=== PATIENT | male | born 1950 | race Caucasian/White ===

== ENCOUNTER 2018-11-12 09:24 | Outpatient (REF) | payer OTHER, SELFPAY ==
[2018-11-12 13:36] LABS: ALT 46 U/L (12-78); AST 27 U/L (15-37); Albumin 3.4 g/dL (3.4-5.0); Alkaline Phosphatase 91 U/L (46-116); Anion Gap 9.4 mmol/L (3-11); BUN 18 mg/dL (7-18); Bilirubin, Total 0.7 mg/dL (0.2-1.0); CO2 26.6 mmol/L (21.0-32.0); CREATININE 0.74 mg/dL (0.70-1.30); Calcium 8.9 mg/dL (8.5-10.1); Chloride 105 mmol/L (98-107); Cholesterol 151 mg/dL (50-200); Glucose 100 mg/dL (70-100); HDL Cholesterol 47 mg/dL (40-60); LDL CHOLESTEROL 83 mg/dL (<100); Potassium 4.1 mmol/L (3.5-5.1); Sodium 141 mmol/L (136-145); Total Protein 6.8 g/dL (6.4-8.2); Triglyceride 121 mg/dL (30-150)
== END 2018-11-12 09:44 ==
LOC: LBN 09:24
PROVIDERS: PCP Family Medicine; Visit Provider Family Medicine
DX: E78.5 Hyperlipidemia, unspecified (principal)
CPT/HCPCS: 80053; 80061; 83721

== ENCOUNTER 2019-04-07 06:52 | Outpatient (CLI) | payer OTHER, SELFPAY ==
--- NOTE | 2019-04-07 08:03 | DI.US_ITS ---
SYMPTOM/DIAGNOSIS: PEDAL EDEMA LT FOOT, LT CALF CRAMPING, SWELLING, R60.0,M79.89,R25.2 LEFT LOWER EXTREMITY ULTRASOUND: The study was carried out according to the usual protocol. The superficial, femoral, popliteal and proximal trifurcation in the superior portion of the leg are well seen. Good compressibility is noted throughout. Flow is demonstrated and flow augmentation was easily elicited with calf compression. SUMMARY: There is no evidence of DVT.
== END 2019-04-07 07:12 ==
PROVIDERS: PCP Family Medicine; Visit Provider Nurse Practitioner
DX: M79.89 Other specified soft tissue disorders (principal); R25.2 Cramp and spasm; R60.0 Localized edema; R22.42 Localized swelling, mass and lump, left lower limb
CPT/HCPCS: 93971

== ENCOUNTER 2019-09-19 19:27 | Inpatient (IN) | payer OTHER, SELFPAY ==
--- NOTE | 2019-09-19 19:35 | ED.GENADUL_ITS ---
Discharge Plan Disposition Patient Disposition: [facility] INPATIENT Condition: Improving Discharge Details Chief Complaint: FlankPain Clinical Impression: Ureter, calculus Primary Care Provider: Emeterio Mahmood ED Provider: Jeffrey Tao Home Meds and New Rx's Prescriptions: No Action atorvastatin 40 mg tablet 40 mg PO DAILY Qty: 90 RF: 3 multivitamin [Multi-Day] 1 EACH tablet 1 ea PO DAILY RF: 0 omega-3 fatty acids-fish oil 1 EACH capsule 1 ea PO BID RF: 0 ibuprofen 200 MG tablet 400 mg PO Q6H PRN RF: 0 aspirin 325 MG tablet 325 mg PO DAILY Qty: 90 RF: 3 metoprolol tartrate 25 mg tablet 25 mg PO BID Qty: 180 RF: 3 Medical Decision Making This patient is a 69-year-old male who presents to the emergency department with chief complaint of left flank pain, nausea. Based on the history, exam, this is most consistent with a kidney stone. Patient will have blood work, urinalysis, CT scan to evaluate for the size of the stone, and to make sure there is no abdominal aortic aneurysm. He will need evaluation to make sure he is not infected as well. If his pain is controlled, the patient can be discharged home to follow-up with his primary care provider or urologist. Patient will be reassessed. Patient had CT scan which shows a 6 mm and 7 mm distal left ureteral stone. His urine shows 20-50 white blood cells. Therefore, I spoke with the on-call urologist, Dr. Lund. Patient's pain is controlled. He will be admitted to the hospitalist service. He will be given antibiotics. Patient agrees with inpatient treatment plan. I spoke with the admitting hospitalist. HPI My side hurts. This patient is a 69-year-old male with multiple medical problems including coronary artery disease, hyperlipidemia, kidney stones, hematuria, hypertension who presents with left flank pain for the past 3 days. He denies any fevers but does state he had chills. The pain is located in the left flank, radiates into his left groin. No lightheadedness, dizziness, passing out. No fevers, no vomiting but he did have some nausea. No diarrhea. He did take some ibuprofen which seemed to help. Otherwise, nothing has helped or made it worse. Symptoms have been constant, severe. Pain is sharp. He states it feels slightly similar to when he had kidney stones in the past. He has required surgery in the past before for kidney stones. General Date/Time Provider Initiated Documentation: 09/19/19 19:34 . Related Data Home Medications Medication Instructions Recorded Confirmed multivitamin [Multi-Day Vitamins] 1 ea PO DAILY 01/11/13 09/19/19 omega-3 fatty acids-fish oil 1 ea PO BID 01/11/13 09/19/19 ibuprofen 400 mg PO Q6H PRN tab-cap 07/12/14 09/19/19 aspirin 325 mg PO DAILY #90 tab 10/21/14 09/19/19 metoprolol tartrate 25 mg tablet 25 mg PO BID #180 tab 05/07/19 09/19/19 atorvastatin 40 mg tablet 40 mg PO DAILY #90 tab-cap 05/11/19 09/19/19 Previous Rx's Medication Instructions Recorded metoprolol tartrate 25 mg tablet 25 mg PO BID #180 tab 05/07/19 atorvastatin 40 mg tablet 40 mg PO DAILY #90 tab-cap 05/11/19 Allergies Allergy/AdvReac Type Severity Reaction Status Date / Time No Known Drug Allergies Allergy Verified 09/19/19 19:42 Review of Systems Narrative: Gen: no fevers. Card: no chest pain. Resp: No cough, difficulty breathing. Abd: no vomiting, abd pain. The rest of the 10 point review of systems is negative except as described in the HPI and above in the ROS. 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 Diabetes oral and insulin tx Heart disease Social History Smoking/Tobacco Use Status: Former Tobacco Use Quit Date: 11/19/84 Alcohol Intake: never Drug use: Never Substance use type: does not use Household members: spouse Housing: house Number of Children: 2 current occupation: [employer] What type of physical activity do you participate in: other Details: mowing/weedwhacking Working smoke detector in home: Yes Fire extinguisher in home: Yes Carbon monox detector in home: Yes Do you feel safe at home: Yes Do you feel safe in your relationship?: Yes Exam Narrative Exam Narrative: Gen: no acute distress, alert. Eyes: Pupils equal, reactive to light, EOMs intact. ENT: nose and ears normal, posterior pharynx without injection or swelling. Neck: normal ROM. Back: no tenderness. Lung: Clear to auscultation bilaterally, no respiratory distress. Card: RRR, normal S1, S2, no M/R/G. 2+ radial pulses bilaterally. Abd: soft, non-tender, no hepatosplenomegaly. Upper extremity: no evidence of trauma. Lower extremity: no edema. Neuro: speech normal, no gross motor deficits. Psych: alert and oriented to person, place time, normal affect. Skin: warm, intact.
[2019-09-19 19:39] VITALS: BP 153/96; PULSE 98; TEMP 36.8; O2SAT 96
[2019-09-19 19:41] LABS: Bilirubin Negative (Negative); Blood Moderate (Negative); Clarity Clear (Clear); Glucose Negative (Negative); Ketones Negative (Negative); Leukocyte Esterase Moderate (Negative); Nitrite Negative (Negative); Specific Gravity 1.015 (1.005-1.025); Urobilinogen 0.2 EU/dL (Up TO 0.2); pH 5.5 (5-8)
[2019-09-19 19:51] LABS: Bacteria Rare HPF (Negative); C & S Indicated? Yes; Crystals Negative HPF (Negative); Epithelial Cells Negative HPF (Negative); Mucus Trace (Negative); RBC 20-50 HPF (0-2); WBC 20-50 HPF (0-5)
[2019-09-19] MEDS: Ketorolac 30 MG/ML VIAL 10 MG IVP (19:55)
[2019-09-19 19:57] LABS: Abs Immature Grans 0.02 k/cumm (0.0-0.09); Absolute Basophil Count 0.01 k/cumm (0.0-0.2); Absolute Eosinophil Count 0.02 k/cumm (0.0-0.7); Absolute Lymphocyte Count 0.95 k/cumm (1.2-3.4); Absolute Monocyte Count 0.85 k/cumm (0.11-0.7); Absolute Neutrophil Count 7.09 k/cumm (1.2-6.7); Basophils % 0.1; Eosinophils % 0.2; HCT 45.1 % (40.0-50.0); HGB 15.4 g/dL (13.5-17.5); Immature Grans % 0.2; Lymphocytes % 10.6; Mean Corp. HGB Concentration 34.1 g/dL (32.0-36.0); Mean Corpuscular Hemoglobin 32.3 pg (27.0-33.0); Mean Corpuscular Volume 94.5 fL (80-95); Mean Platelet Volume 9.5 fL (8.0-11.0); Monocytes % 9.5; Neutrophils % 79.4; Platelet Count 189 x1000/uL (130-400); RBC 4.77 m/cumm (4.50-6.00); RBC Distribution Width 13.3 % (11.8-14.1); White Blood Cell Count 8.94 k/cumm (4.4-10.8)
[2019-09-19 20:09] LABS: ALT 33 U/L (16-63); AST 26 U/L (15-37); Albumin 3.5 g/dL (3.4-5.0); Alkaline Phosphatase 79 U/L (46-116); Anion Gap 9.8 mmol/L (3-11); BUN 21 mg/dL (7-18); Bilirubin, Total 1.4 mg/dL (0.2-1.0); CO2 26.2 mmol/L (21.0-32.0); CREATININE 1.04 mg/dL (0.70-1.30); Calcium 8.8 mg/dL (8.5-10.1); Chloride 101 mmol/L (98-107); Glucose 103 mg/dL (74-106); Potassium 3.8 mmol/L (3.5-5.1); Sodium 137 mmol/L (136-145); Total Protein 7.6 g/dL (6.4-8.2)
--- NOTE | 2019-09-19 20:11 | DI.CT_ITS ---
EXAM: CT ABDOMEN PELVIS WO CLINICAL HISTORY: left flank pain, chills. TECHNIQUE: Noncontrast COMPARISON: RENAL COLIC WO CONTRAST from 08/05/2011 FINDINGS: There are multiple bilateral parapelvic cysts. There are 2 adjacent stones in the mid left ureter, measuring 7 and 10 millimeters respectively, causing moderate left hydronephrosis. Multiple calcific ations were seen in the left ureter on the previous exam in a similar location. There are a few othe r tiny nonobstructing stones bilaterally. There is a cyst with dependent calcifications seen in the posterior left kidney. There is mild left perinephric stranding. Bladder and prostate are unremarka ble. Coronary artery calcifications are seen. The heart size is normal. There are no pleural or pericard ial effusions. The liver is enlarged and shows mild fatty infiltration. The gallbladder, spleen, pa ncreas and adrenals are unremarkable. There is diverticulosis of the sigmoid but no evidence of dive rticulitis. The appendix appears normal. There is no small bowel dilatation. IMPRESSION: 2 stones in the mid left ureter causing moderate left hydronephrosis.
[2019-09-19 20:43] VITALS: BP 138/79; PULSE 87; RESP 16; TEMP 37.2; O2SAT 95
--- NOTE | 2019-09-19 20:48 | DI.VRAD_ITS ---
PROCEDURE INFORMATION: Exam: CT Abdomen And Pelvis Without Contrast Exam date and time: 09/19/2019 7:49 PM Age: 69 years old Clinical history: Other: Left flank pain, chills. TECHNIQUE: Imaging protocol: Computed tomography of the abdomen and pelvis without contrast. Radiation optimization: All CT scans at this facility use at least one of these dose optimization techniques: automated exposure control; mA and/or kV adjustment per patient size (includes targeted exams where dose is matched to clinical indication); or iterative reconstruction. COMPARISON: US RENAL ULTRASOUND(P) 07/04/2017 1:18 PM FINDINGS: Lungs: Hyperinflation of the lungs. There is minimal bibasilar atelectasis. Liver: Liver is enlarged. There is diffuse diminished attenuation of hepatic parenchyma consistent with the presence of moderate fatty infiltration. Gallbladder and bile ducts: Normal. No calcified stones. No ductal dilation. Pancreas: Normal. No ductal dilation. Spleen: Normal. No splenomegaly. Adrenals: Normal. No mass. Kidneys and ureters: 2 obstructing calculi in distal left ureter, the more proximal measuring 6 and that just distal to it, 7 mm. Mild left hydronephrosis and hydroureter. 2 mm left renal calculus. Dependent milk of calcium in 3 cm cyst, left kidney. 1 mm right renal calculus. Bilateral parapelvic cysts. Stomach and bowel: Unremarkable. No obstruction. No mucosal thickening. Colonic diverticula. No diverticulitis. Appendix: No evidence of appendicitis. Intraperitoneal space: Unremarkable. No free air. No significant fluid collection. Vasculature: There are coronary artery calcifications. No aortic aneurysm. Atherosclerosis. Lymph nodes: Unremarkable. No enlarged lymph nodes. Bladder: Unremarkable as visualized. Reproductive: Prostatic calcification. Bones/joints: The spine demonstrates mild degenerative changes at multiple levels. No acute fracture. Soft tissues: There is an uncomplicated fat-containing umbilical hernia. IMPRESSION: 1. Obstructing calculi in distal left ureter. 2. Bilateral renal calculi. 3. Parapelvic cysts. 4. Hyperinflation of the lungs. 5. Hepatomegaly. 6. Hepatic steatosis. 7. Coronary artery disease. Dictated and Authenticated by: Emeterio Kimball MD. Ordering:RAMÍREZ Murphy MD
[2019-09-19] MEDS: cefTRIAXone 1 GM/50 ML BAG IVPB (21:20)
[2019-09-19] MEDS: Tamsulosin 0.4 MG CAPCR PO (21:21)
--- NOTE | 2019-09-19 21:24 | W.PM.HP.N ---
Date of service: 09/19/19 Time of Service: 21:24 Assessment and Plan Assessment and plan (1) Calculus of ureter: Start date: 09/19/19 Status: Acute Assessment and plan: This is a 69-year-old gentleman with a history of previous left ureteral stone requiring stenting for removal who presents with fever, microscopic hematuria and left flank pain with CT scan confirming larger distal ureteral stones with mild hydronephrosis. He was admitted for IV hydration, pain control and was on oral Flomax with IV Rocephin to cover possible infection with fever upon presentation but no white blood cell count elevation. The time I saw the patient he was more comfortable after presenting with tachycardia and discomfort from the ED. Dr. Lund has been consulted and will see the patient in the morning. (2) CAD (coronary artery disease): Status: Chronic Assessment and plan: Patient had stenting when in 2004 when he was in his late 50s. His monitor did show sinus tachycardia when he was uncomfortable and more normal rhythm with sinus pacing and right bundle-branch block which appears to be slightly progressive on EKG. He is not having active symptoms and this will be monitored as we treat his left ureteral stones. His metoprolol will be continued. He is already on atorvastatin. Qualifiers: Associated angina: without angina Coronary Disease-Associated Artery/Lesion type: unspecified vessel or lesion type [place] vs. transplanted heart: [place] heart Qualified Code(s): I25.10 - Atherosclerotic heart disease of [place] coronary artery without angina pectoris History of Present Illness History of Present Illness Chief Complaint: Left flank pain Narrative: This is a 69-year-old gentleman without left leg pain for 2 to 3 days when he presented to the ED for evaluation. He has a history of passing kidney stones on the left side in the past and CT scan of the abdomen and pelvis in the ED did reveal a 7 mm and 6 mm ureteral stone on the left with mild hydronephrosis. There were in the distal ureter. He had fever but no white count and his pain required Toradol IV for control. Dr. Lund was consulted by the ED physician and it was advised to admit the patient for IV hydration, pain control and IV ceftriaxone until he can be seen in the morning. He does have a history of CAD and is telemetry did show a widened complex with EKG being repeated revealing a progressive right bundle branch block but no acute ST-T changes per ICU nurse. He was having no chest pain or palpitations. He was having no nausea or vomiting or other abdominal complaints. He was not having gross hematuria by history. Patient is generally healthy and had only 1 previous incident of calcium kidney stones on the left side at that time as well. With that previous incident he did require stenting and surgical removal of the stones. Review of Systems Narrative: 13 point review of systems otherwise unrevealing or stable. 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 Diabetes oral and insulin tx Heart disease Social History Smoking/Tobacco Use Status: Former Tobacco Use Quit Date: 11/19/84 Alcohol Intake: never Drug use: Never Substance use type: does not use Household members: spouse Housing: house Number of Children: 2 current occupation: [employer] What type of physical activity do you participate in: other Details: mowing/weedwhacking Working smoke detector in home: Yes Fire extinguisher in home: Yes Carbon monox detector in home: Yes Do you feel safe at home: Yes Do you feel safe in your relationship?: Yes Meds Home Medications and Allergies Home Medications Medication Instructions Recorded Confirmed Type multivitamin [Multi-Day Vitamins] 1 ea PO DAILY 01/11/13 09/19/19 History omega-3 fatty acids-fish oil 1 ea PO BID 01/11/13 09/19/19 History ibuprofen 400 mg PO Q6H PRN tab-cap 07/12/14 09/19/19 History aspirin 325 mg PO DAILY #90 tab 10/21/14 09/19/19 History metoprolol tartrate 25 mg tablet 25 mg PO BID #180 tab 05/07/19 09/19/19 Rx atorvastatin 40 mg tablet 40 mg PO DAILY #90 tab-cap 05/11/19 09/19/19 Rx Allergies Allergy/AdvReac Type Severity Reaction Status Date / Time No Known Drug Allergies Allergy Verified 09/19/19 19:42 Exam Narrative Exam Narrative: General: Patient is alert and oriented x3 and in no acute distress. Is more comfortable at the time of my exam. He is moderately obese but otherwise healthy-appearing with normal development and appears appropriate for age. HEENT: Normocephalic with eyes revealing pupils equal and reactive to light symmetrically, sclera anicteric and extraocular movement intact. Oropharynx with moist oral mucosa and fair dentition. External ears are normal. Neck: Supple without JVD. Back: Stooped posture with no CVA tenderness. Lungs: Clear to auscultation and percussion. Heart: Regular rate and rhythm without murmurs or gallops. Peripheral pulses are intact. Abdomen: Obese contour, soft and nontender to palpation with slight discomfort to deep palpation on the left with no palpable kidney. No guarding. No rebound. Bowel sounds are positive in all quadrants. Genitalia/rectal: Exam deferred. Extremities: Without clubbing, cyanosis or edema. Joints have fair range of motion. Neuro: Cranial nerves II through XII grossly intact, no focalizing motor deficits. Reflexes symmetric and physiologic. Skin: Warm, normal color and dry. Psych: Normal affect, normal thought processes and remote and recent memory intact. Results Imaging Imaging Studies: Exam(s) PROCEDURE INFORMATION: Exam: CT Abdomen And Pelvis Without Contrast Exam date and time: 09/19/2019 7:49 PM Age: 69 years old Clinical history: Other: Left flank pain, chills. TECHNIQUE: Imaging protocol: Computed tomography of the abdomen and pelvis without contrast. Radiation optimization: All CT scans at this facility use at least one of these dose optimization techniques: automated exposure control; mA and/or kV adjustment per patient size (includes targeted exams where dose is matched to clinical indication); or iterative reconstruction. COMPARISON: US RENAL ULTRASOUND(P) 07/04/2017 1:18 PM FINDINGS: Lungs: Hyperinflation of the lungs. There is minimal bibasilar atelectasis. Liver: Liver is enlarged. There is diffuse diminished attenuation of hepatic parenchyma consistent with the presence of moderate fatty infiltration. Gallbladder and bile ducts: Normal. No calcified stones. No ductal dilation. Pancreas: Normal. No ductal dilation. Spleen: Normal. No splenomegaly. Adrenals: Normal. No mass. Kidneys and ureters: 2 obstructing calculi in distal left ureter, the more proximal measuring 6 and that just distal to it, 7 mm. Mild left hydronephrosis and hydroureter. 2 mm left renal calculus. Dependent milk of calcium in 3 cm cyst, left kidney. 1 mm right renal calculus. Bilateral parapelvic cysts. Stomach and bowel: Unremarkable. No obstruction. No mucosal thickening. Colonic diverticula. No diverticulitis. Appendix: No evidence of appendicitis. Intraperitoneal space: Unremarkable. No free air. No significant fluid collection. Vasculature: There are coronary artery calcifications. No aortic aneurysm. Atherosclerosis. Lymph nodes: Unremarkable. No enlarged lymph nodes. Bladder: Unremarkable as visualized. Reproductive: Prostatic calcification. Bones/joints: The spine demonstrates mild degenerative changes at multiple levels. No acute fracture. Soft tissues: There is an uncomplicated fat-containing umbilical hernia. IMPRESSION: 1. Obstructing calculi in distal left ureter. 2. Bilateral renal calculi. 3. Parapelvic cysts. 4. Hyperinflation of the lungs. 5. Hepatomegaly. 6. Hepatic steatosis. 7. Coronary artery disease. Dictated and Authenticated by: Emeterio Kimball MD. Labs Result diagrams: 09/20/19 06:00 09/19/19 19:50 Labs: Laboratory Results - last 24 hr 09/19/19 09/19/19 09/19/19 19:30 19:50 19:50 WBC 8.94 RBC 4.77 Hgb 15.4 Hct 45.1 MCV 94.5 MCH 32.3 MCHC 34.1 RDW 13.3 Plt Count 189 MPV 9.5 Immature Gran % 0.2 Neutrophils % 79.4 Lymphocytes % 10.6 Monocytes % 9.5 Eosinophils % 0.2 Basophils % 0.1 Absolute Neutrophils 7.09 H Absolute Lymphocytes 0.95 L Absolute Monocytes 0.85 H Absolute Eosinophils 0.02 Absolute Basophils 0.01 Sodium 137 Potassium 3.8 Chloride 101 Carbon Dioxide 26.2 Anion Gap 9.8 BUN 21 H Creatinine 1.04 Estimated GFR/1.73 m2 >= 60.00 Glucose 103 Calcium 8.8 Total Bilirubin 1.4 H AST 26 ALT 33 Alkaline Phosphatase 79 Total Protein 7.6 Albumin 3.5 Urine Color Yellow Urine Clarity Clear Urine pH 5.5 Ur Specific Seibert 1.015 Urine Protein Negative Urine Ketones Negative Urine Blood Moderate H Urine Nitrite Negative Urine Bilirubin Negative Urine Urobilinogen 0.2 Ur Leukocyte Esterase Moderate H Urine RBC 20-50 H Urine WBC 20-50 H Ur Epithelial Cells Negative Urine Crystals Negative Urine Bacteria Rare Urine Mucus Trace Ur Culture Indicated? Yes Urine Glucose Negative Last Vital Signs Temp 37.2 C 09/19/19 20:43 Pulse 87 09/19/19 20:43 Resp 16 09/19/19 20:43 BP 138/79 09/19/19 20:43 Pulse Ox 95 09/19/19 20:43
[2019-09-19] MEDS: Normal Saline 1,000 ML 150 ML IV (21:54)
[2019-09-19 22:48] VITALS: BP 166/110; PULSE 111; RESP 19; TEMP 38.7; O2SAT 95
[2019-09-19] MEDS: Heparin 5,000 UNITS/ML VIAL 5000 UNITS SC (23:14)
[2019-09-19 23:56] VITALS: TEMP 38.7
[2019-09-19] MEDS: Acetaminophen 325 MG TAB 650 MG PO (23:56)
[2019-09-20] VITALS (12 sets, daily range): BP systolic 122–184; BP diastolic 78–110; PULSE 74–122; RESP 13–27; TEMP 36.9–38.4; O2SAT 93–96
--- NOTE | 2019-09-20 01:17 | NUR.NOTE ---
2352 CALLED MD. PT HAS TEMP OF 38.7. MD ORDERED BLOOD CULTURES X 2. ENTERED ORDER AND CALLED LAB WHO CAME AND CAROLEE BLOOD CULTURES. 0032 ICU NURSE CATRACHITO CALLED TO SAY THAT PT WAS HAVING PVCs AND HAD SUSTAINED HR IN 120s FOR A TIME. ALSO, THE TELEMETRY READING LOOKED DIFFERENT THAN PT'S EKG ON 09/16/19. DISCUSSED. ICU NURSE WILL CALL MD SINCE SHE HAS TELE READINGS AND EKG READINGS AND CAN BETTER ANSWER ANY QUESTIONS MD MAY HAVE. 0039 ICU NURSE CALLED AFTER GETTING OFF PHONE WITH MD. MD WANTS AN EKG DONE. THIS GROUP UNDERWRITER PUT EKG ORDER IN AND CALLED NURSING ULTRASOUND MANAGER TO ARRANGE HAVING EKG DONE. 0114 ICU NURSE CALLED AFTER LOOKING AT EKG RESULTS TO SAY PT HAD A R BBB. SHE DID NOT FEEL MD NEEDED TO BE CALLED AT THIS TIME BUT WILL IF THERE ARE CHANGES OR PROBLEMS. Nursing Note:
[2019-09-20] MEDS: Normal Saline 1,000 ML 150 ML IV ×4 (04:22→23:35)
[2019-09-20] MEDS: Heparin 5,000 UNITS/ML VIAL 5000 UNITS SC ×2 (06:15→21:29)
[2019-09-20 06:34] LABS: HCT 42.2 % (40.0-50.0); HGB 14.2 g/dL (13.5-17.5); Mean Corp. HGB Concentration 33.6 g/dL (32.0-36.0); Mean Corpuscular Hemoglobin 31.8 pg (27.0-33.0); Mean Corpuscular Volume 94.6 fL (80-95); Mean Platelet Volume 9.5 fL (8.0-11.0); Platelet Count 184 x1000/uL (130-400); RBC 4.46 m/cumm (4.50-6.00); RBC Distribution Width 13.4 % (11.8-14.1); White Blood Cell Count 8.74 k/cumm (4.4-10.8)
[2019-09-20 06:42] LABS: INR 1.1 (0.9-1.1); Prothrombin Time 11.1 sec (9.3-11.0)
[2019-09-20 07:00] LABS: ALT 29 U/L (16-63); AST 21 U/L (15-37); Albumin 2.9 g/dL (3.4-5.0); Alkaline Phosphatase 64 U/L (46-116); Anion Gap 9.4 mmol/L (3-11); BUN 20 mg/dL (7-18); Bilirubin, Total 1.1 mg/dL (0.2-1.0); CO2 25.6 mmol/L (21.0-32.0); CREATININE 0.98 mg/dL (0.70-1.30); Calcium 8.2 mg/dL (8.5-10.1); Chloride 103 mmol/L (98-107); Glucose 104 mg/dL (74-106); Magnesium 1.6 mg/dL (1.8-2.4); Potassium 3.6 mmol/L (3.5-5.1); Sodium 138 mmol/L (136-145); Total Protein 6.6 g/dL (6.4-8.2)
--- NOTE | 2019-09-20 07:27 | UCONE_ITS ---
Date of service: 09/20/19 Time of Service: 07:27 Assessment and Plan Assessment and plan (1) Calculus of ureter: Status: Acute Assessment and plan: He is pain free this morning, but he continues to hav e some nausea. He is not showing signs or symptoms of sepsis. I have given this gentleman 2 different options. He certainly could attempt to pass the stone with conservative measures. With the size of the ureteral stones, he would be expected to have a less than 50% chance of successfully passing both stones. The other option would be to move forward with ureteroscopic stone manipulation. I explained that today is 1 of my designated surgery day is, so I could probably accomplish the procedure later today. The procedure would involve cystoscopy, retrograde pyelogram (to confirm the location of the stones), ureteroscopy, holmium laser lithotripsy of the stones and stone extraction. The success of the procedure would depend on our ability to directly visualize the stones. If there is too much edema along the ureter to safely pass the ureteroscope up to the stones, we sometimes need to place a ureteral stent to allow the edema to subside. The patient would then come back at a later date for the completion ureteroscopy. The patient is experienced with this type of procedure having had it done by Dr. Killian in 2010. He would like to talk to his this morning before deciding how to proceed. I will keep him n.p.o. just in case he did would like to proceed with the surger y. History of Present Illness History of Present Illness Chief Complaint: Left ureteral stones Narrative: This is a 69-year-old gentleman with a past history of a left-sided u reteral stones. He had undergone left ureteroscopy with stone extraction and stent placement in September 2011. His stones at that time were analyzed and contained 50% calcium oxalate monohydrate and 50% calcium oxalate dihydrate. Since that time, he has had no significant episodes of renal colic until this past weekend. He presented to the ER with left-sided pain. He did describe a very short lived chill when he was at home, but he has had no documented fevers. He has no dysuria or gross hematuria. When the [id number] anti-inflammatory medications he was using for pain control were no longer helpful, he presented to the emergency room. On CT scan, he had bilateral nonobstructing kidney stones as well as two stones in the left ureter (measuring 6 and 7 mm). His urine did show some white blood cells, so he was admitted to the hospital for observation overnight and given antibiotics. If he were to develop signs or symptoms of sepsis, I was prepared to place a ureteral stent in him last evening. This morning he tells me he is having no pain. He has no fevers or chills. He has not passed his stone. He does have some bloating and nausea. He is never had a metabolic work-up as far as he recalls. He has no history of gout or hyperparathyroid disease. Review of Systems Narrative: No fevers or chills No vision change or dysphasia. He complains of a dry mouth and feeling thirsty No diabetes or thyroid No shortness of sputum production or hemoptysis. 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) CAD (coronary artery disease) (Chronic 09/01/17) With angina - unspecified per Dr Monique [place] [facility] [place] Calculus of ureter (Acute 02/03/13) Cor athrscl-uns vessel (Chronic 10/14/11) Stent LAD 2005; [facility] [place] q 2y; Dr Monique 08/2017 History of kidney stones (Chronic 07/29/17) Hyperlipidemia (Chronic 10/14/11) LDL goal 80 Obesity (Chronic 02/09/14) Osteoarthritis of left shoulder (Chronic 09/02/14) Dr Liu Unspecified essential hypertension (Chronic 09/01/17) per [facility] [place] Visit, Dr Aj Monique Surgical History H/O heart artery stent (Chronic ~2005) LAD H/O umbilical hernia repair (Acute 01/03/11) Repair of umbilical hernia (06/18/13) Dr Sal-laparoscopic umbilical herniorraphy w/removal of old mesh- recurrent Status post cataract extraction and insertion of intraocular lens of right eye ( Acute 02/22/11) Family History Father , [place] at age 51. Diabetes oral and insulin tx Heart disease Social History Smoking/Tobacco Use Status: Former Tobacco Use Quit Date: 11/19/84 Alcohol Intake: never Drug use: Never Substance use type: does not use Household members: spouse Housing: house Number of Children: 2 current occupation: [employer]ractive What type of physical activity do you participate in: other Details: mowing/weedwhacking Working smoke detector in home: Yes Fire extinguisher in home: Yes Carbon monox detector in home: Yes Do you feel safe at home: Yes Do you feel safe in your relationship?: Yes Exam Narrative Exam Narrative: He is in no current distress. He is cooperative. His vital signs are documented elsewhere His chest wall motion is normal. He does not appear short of breath at rest. His abdomen is soft with no guarding or rebound tenderness. There is no edema in the lower extremities. He is awake, alert and oriented. I was able to review his CT scan on the PACS system. There are nonobstructing stones in both kidneys. In the the left ureter, there are 2 separate ureteral stones in the region of the pelvic brim. The ureter above the stones is dilated. Results Last Vital Signs Temp 37.0 C 09/20/19 03:48 Pulse 109 H 09/20/19 03:48 Resp 17 09/20/19 03:48 BP 146/81 H 09/20/19 03:48 Pulse Ox 95 09/20/19 03:48 Labs Result diagrams: 09/21/19 06:12 09/21/19 06:12 Labs: Laboratory Results - last 24 hr 09/19/19 09/19/19 09/19/19 19:30 19:50 19:50 WBC 8.94 RBC 4.77 Hgb 15.4 Hct 45.1 MCV 94.5 MCH 32.3 MCHC 34.1 RDW 13.3 Plt Count 189 MPV 9.5 Immature Gran % 0.2 Neutrophils % 79.4 Lymphocytes % 10.6 Monocytes % 9.5 Eosinophils % 0.2 Basophils % 0.1 Absolute Neutrophils 7.09 H Absolute Lymphocytes 0.95 L Absolute Monocytes 0.85 H Absolute Eosinophils 0.02 Absolute Basophils 0.01 PT INR Sodium 137 Potassium 3.8 Chloride 101 Carbon Dioxide 26.2 Anion Gap 9.8 BUN 21 H Creatinine 1.04 Estimated GFR/1.73 m2 >= 60.00 Glucose 103 Calcium 8.8 Magnesium Total Bilirubin 1.4 H AST 26 ALT 33 Alkaline Phosphatase 79 Total Protein 7.6 Albumin 3.5 Urine Color Yellow Urine Clarity Clear Urine pH 5.5 Ur Specific [place] 1.015 Urine Protein Negative Urine Ketones Negative Urine Blood Moderate H Urine Nitrite Negative Urine Bilirubin Negative Urine Urobilinogen 0.2 Ur Leukocyte Esterase Moderate H Urine RBC 20-50 H Urine WBC 20-50 H Ur Epithelial Cells Negative Urine Crystals Negative Urine Bacteria Rare Urine Mucus Trace Ur Culture Indicated? Yes Urine Glucose Negative 09/20/19 09/20/19 09/20/19 06:00 06:00 06:00 WBC 8.74 RBC 4.46 L Hgb 14.2 Hct 42.2 MCV 94.6 MCH 31.8 MCHC 33.6 RDW 13.4 Plt Count 184 MPV 9.5 Immature Gran % Neutrophils % Lymphocytes % Monocytes % Eosinophils % Basophils % Absolute Neutrophils Absolute Lymphocytes Absolute Monocytes Absolute Eosinophils Absolute Basophils PT 11.1 H INR 1.1 Sodium 138 Potassium 3.6 Chloride 103 Carbon Dioxide 25.6 Anion Gap 9.4 BUN 20 H Creatinine 0.98 Estimated GFR/1.73 m2 >= 60.00 Glucose 104 Calcium 8.2 L Magnesium 1.6 L Total Bilirubin 1.1 H AST 21 ALT 29 Alkaline Phosphatase 64 Total Protein 6.6 Albumin 2.9 L Urine Color Urine Clarity Urine pH Ur Specific [place] Urine Protein Urine Ketones Urine Blood Urine Nitrite Urine Bilirubin Urine Urobilinogen Ur Leukocyte Esterase Urine RBC Urine WBC Ur Epithelial Cells Urine Crystals Urine Bacteria Urine Mucus Ur Culture Indicated? Urine Glucose
[2019-09-20] MEDS: Metoprolol 25 MG TAB PO ×2 (07:48→20:04)
[2019-09-20] MEDS: Acetaminophen 325 MG TAB 650 MG PO (07:48)
[2019-09-20] MEDS: Tamsulosin 0.4 MG CAPCR PO (07:48)
--- NOTE | 2019-09-20 08:07 | PHARADMIT ---
Admission Pharmacy Clinical Review LEFT URETEROLITHIASIS w/HYDRONEPHROSIS Code Status Full Code Current Weight Wgt-86.2 kg Renally Cleared and Narrow Therapeutic Index Meds CrCl~59 mL/min Meds-OK QTc Value / Action Taken NONE CURRENT BP Control, Fever BP- 146/81 Tmax-38.7C Electrolytes reviewed Na-138 K+3.6 Mag-1.6 DVT Prophylaxis Heparin SC Opiate Usage / Scheduled Bowel Regimen Ordered Yes Yes Plt/SCr for Heparin / Enoxaparin Plts-184 SCr-0.98 INR for Warfarin inr-1.1 H/H stable, WBC/Bands H&H- 14.2/42.2 WBC-8.74 Antibiotic appropriateness Rocephin, Cultures and Sensitivities Urine/Blood-pending Surgical ABX d/c within 24 hr na DM control / Insulin Dosing BG-104 Heart Failure (Check EF%) (MAGALY's, B-Block, Diuretics) Lopressor IV to PO Switch no Home Meds Reviewed Yes Home Meds Not Ordered Ibuprofen, NTG, Imbler-3 Comments
[2019-09-20] MEDS: MAGNESIUM SULFATE 4 GM/100 ML BAG IVPB (08:40)
--- NOTE | 2019-09-20 08:41 | INITIAL_ITS ---
- If Service Date Differs Date of service: 09/20/19 Time of Service: 08:41 Care Management Initial Assess REASON FOR HOSPITALIZATION:: Left ureterolithiasis with hydronephrosis. PAST MEDICAL HISTORY/PAST SURGICAL HISTORY:: Medical History: Adhesive capsulit is of unspecified shoulder, CAD (coronary artery disease) with angina - unspecified per Dr Monique @ [facility] [place] Cardiology, Calculus of ureter, Cor athrscl- uns vessel - Stent LAD 2005; [facility] Cardiology q 2y; Dr Monique 08/2017, History of kidney stones, Hyperlipidemia, Obesity, Osteoarthritis of left shoulder - Dr Liu, and. Unspecified essential hypertension per [facility] Cardiology Visit, Dr Aj Monique. Surgical History: H/O heart artery stent - LAD, H/O umbilical hernia repair,. Repair of umbilical hernia - Dr Sal- laparoscopic umbilical herniorraphy w/removal of old mesh-recurrent, and Status post cataract extraction and insertion of intraocular lens of right eye. PREVIOUS FUNCTIONAL STATUS/SOCIAL/FAMILY SUPPORTS:: Antonio lives in [facility] [place] with Joanie, his of 40 years. The couple has 2 adult sons, one who lives in [place], [place], and the other in the [facility]. Antonio works full-time in billing at [employer] but is planning on going to part-time at the beginning of the year. He drives and is independent with his ADLs at baseline. CURRENT FUNCTIONAL STATUS:: Antonio is lying in bed when CM comes to meet with him. He is pleasant and easily engages in conversation. He shares he has opted to have surgery for the removal of the kidney stones and states he had kidney stones in 2010 with subsequent surgery, so he knows what to expect. ADVANCE DIRECTIVES:: On file at [facility]; Joanie Berman () is agent. Has patient been provided with information about the portal?: Yes Did the patient sign up for the portal?: Yes CODE STATUS:: Full Code INSURANCE COVERAGE / FINANCIAL ISSUES:: CBA CURRENT HOME/COMMUNITY SERVICES/EQUIPMENT:: Antonio has no current services or equipment. PRIMARY CARE PHYSICIAN:: Emeterio Mahmood DO ([facility]) POTENTIAL DISCHARGE NEEDS:: Follow-up appointment with PCP and urologist. PATIENT/FAMILY EDUCATION NEEDS:: Discharge plan, limitations, follow-up plan, including Ask Me Three and self-management. ANTICIPATED BARRIERS TO DISCHARGE:: None. TRANSPORTATION:: Antonio's , Joanie, will transport him home via private vehicle when ready. PLAN:: Antonio will be discharged home when medically cleared by provider. Anticipate no additional services needed at time of discharge. Patient's will transport him home via private vehicle upon discharge.
--- NOTE | 2019-09-20 09:37 | PGE_ITS ---
Date of Service Date of service: 09/20/19 Time of Service: 09:38 Assessment and Plan Assessment and plan (1) Calculus of ureter: Start date: 09/20/19 Start time: 09:40 Status: Acute Assessment and plan: No pain at this time. Feeling better. Surgery today with Dr. Lund for stone removal. Keep NPO. Febrile this am, will continue ceftriaxone for UTI, Blood cultures pending, urine culture pending. (2) CAD (coronary artery disease): Start date: 09/20/19 Start time: 09:42 Status: Chronic Assessment and plan: Patient denies CP, on metoprolol. Teley dcd at this time. Continue home treatment. Qualifiers: Coronary Disease-Associated Artery/Lesion type: unspecified vessel or lesion type [place] vs. transplanted heart: [place] heart Associated angina: without angina Qualified Code(s): I25.10 - Atherosclerotic heart disease of [place] coronary artery without angina pectoris (3) Hyperlipidemia: Start date: 09/20/19 Start time: 09:43 Status: Chronic Assessment and plan: On atorvastatin continue dose (4) Unspecified essential hypertension: Start date: 09/20/19 Start time: 09:44 Status: Chronic Assessment and plan: Hypertensive on admission. Possibly in setting of pain. Continue metoprolol, monitor BP, add small dose MAGALY-I if continues to be elevated. (5) DVT prophylaxis: Start date: 09/20/19 Start time: 09:46 Status: Acute Assessment and plan: Heparin Subcu. Above case discussed with Dr. Hong who is in agreement. Subjective Subjective Patient reports: no new complaints Interval history since last seen: Looking well this am. States no pain. Possible surgery today with Dr. Lund for stone removal. Denies pain, nausea, vomiting, and diarrhea. Denies CP. Exam Narrative Exam Narrative: General: Patient is alert and oriented x3 and in no acute distress.. HEENT: Normocephalic with eyes revealing pupils equal and reactive to light symmetrically, sclera anicteric and extraocular movement intact. Oropharynx with moist oral mucosa and fair dentition. External ears are normal. Neck: Supple without JVD. Back: Stooped posture with no CVA tenderness. Lungs: Clear to auscultation and percussion. Heart: Regular rate and rhythm without murmurs or gallops. Peripheral pulses are intact. Abdomen: Obese contour, soft and nontender to palpation with slight discomfort to deep palpation on the left with no palpable kidney. No guarding. No rebound. Bowel sounds are positive in all quadrants. Extremities: Without clubbing, cyanosis or edema. Joints have fair range of motion. Skin: Warm, normal color and dry. Psych: Normal affect, normal thought processes and remote and recent memory intact. Objective Objective Clinical Data: Abnormal lab results 09/19/19 09/19/19 09/19/19 Range/Units 19:30 19:50 19:50 RBC (4.50-6.00) m/cumm Absolute Neutrophils 7.09 H (1.2-6.7) k/cumm Absolute Lymphocytes 0.95 L (1.2-3.4) k/cumm Absolute Monocytes 0.85 H (0.11-0.7) k/cumm PT (9.3-11.0) sec BUN 21 H (7-18) mg/dL Calcium (8.5-10.1) mg/dL Magnesium (1.8-2.4) mg/dL Total Bilirubin 1.4 H (0.2-1.0) mg/dL Albumin (3.4-5.0) g/dL Urine Blood Moderate H (Negative) Ur Leukocyte Esterase Moderate H (Negative) Urine RBC 20-50 H (0-2) HPF Urine WBC 20-50 H (0-5) HPF 09/20/19 09/20/19 09/20/19 Range/Units 06:00 06:00 06:00 RBC 4.46 L (4.50-6.00) m/cumm Absolute Neutrophils (1.2-6.7) k/cumm Absolute Lymphocytes (1.2-3.4) k/cumm Absolute Monocytes (0.11-0.7) k/cumm PT 11.1 H (9.3-11.0) sec BUN 20 H (7-18) mg/dL Calcium 8.2 L (8.5-10.1) mg/dL Magnesium 1.6 L (1.8-2.4) mg/dL Total Bilirubin 1.1 H (0.2-1.0) mg/dL Albumin 2.9 L (3.4-5.0) g/dL Urine Blood (Negative) Ur Leukocyte Esterase (Negative) Urine RBC (0-2) HPF Urine WBC (0-5) HPF Vital Signs Temperature 38.4 C H 09/20/19 07:48 Temperature Source Tympanic 09/20/19 07:26 Pulse 105 H 09/20/19 07:26 Pulse Rhythm Irregular 09/20/19 08:52 Respiratory Rate 18 09/20/19 07:26 Respiratory Effort Non-Labored 09/20/19 08:52 Respiratory Depth Normal 09/20/19 08:52 Respiratory Pattern Normal 09/20/19 08:52 Blood Pressure 150/78 H 09/20/19 07:26 Blood Pressure Position Sitting 09/19/19 19:39 Pulse Oximetry 93 L 09/20/19 07:26 Oxygen Delivery Method Room Air 09/20/19 07:26 Oxygen Flow Rate 0 09/20/19 07:26 Pain Level 0 09/20/19 07:48 Comment 09/20/19 07:26 Intake & Output 09/19/19 09/19/19 09/20/19 11:59 23:59 11:59 Intake Total 50 / 50 1000 / 1000 Output Total 300 / 300 1200 / 1200 Balance -250 / -250 -200 / -200 Weight 86.183 kg 86.2 kg Intake: IV 50 / 50 1000 / 1000 Output: Urine 300 / 300 1200 / 1200 Other: Urine Color Yellow Light Lelo Urine Appearance Clear Clear Urine Odor None Comment Independent in the bathroom and strained his urine Voiding Methods Toilet Toilet Urinal Laboratory Results WBC 8.74 k/cumm (4.4-10.8) 09/20/19 06:00 RBC 4.46 m/cumm (4.50-6.00) L 09/20/19 06:00 Hgb 14.2 g/dL (13.5-17.5) 09/20/19 06:00 Hct 42.2 % (40.0-50.0) 09/20/19 06:00 MCV 94.6 fL (80-95) 09/20/19 06:00 MCH 31.8 pg (27.0-33.0) 09/20/19 06:00 MCHC 33.6 g/dL (32.0-36.0) 09/20/19 06:00 RDW 13.4 % (11.8-14.1) 09/20/19 06:00 Plt Count 184 x1000/uL (130-400) 09/20/19 06:00 MPV 9.5 fL (8.0-11.0) 09/20/19 06:00 Immature Gran % 0.2 09/19/19 19:50 Neutrophils % 79.4 09/19/19 19:50 Lymphocytes % 10.6 09/19/19 19:50 Monocytes % 9.5 09/19/19 19:50 Eosinophils % 0.2 09/19/19 19:50 Basophils % 0.1 09/19/19 19:50 Absolute Neutrophils 7.09 k/cumm (1.2-6.7) H 09/19/19 19:50 Absolute Lymphocytes 0.95 k/cumm (1.2-3.4) L 09/19/19 19:50 Absolute Monocytes 0.85 k/cumm (0.11-0.7) H 09/19/19 19:50 Absolute Eosinophils 0.02 k/cumm (0.0-0.7) 09/19/19 19:50 Absolute Basophils 0.01 k/cumm (0.0-0.2) 09/19/19 19:50 PT 11.1 sec (9.3-11.0) H 09/20/19 06:00 INR 1.1 (0.9-1.1) 09/20/19 06:00 Sodium 138 mmol/L (136-145) 09/20/19 06:00 Potassium 3.6 mmol/L (3.5-5.1) 09/20/19 06:00 Chloride 103 mmol/L (98-107) 09/20/19 06:00 Carbon Dioxide 25.6 mmol/L (21.0-32.0) 09/20/19 06:00 Anion Gap 9.4 mmol/L (3-11) 09/20/19 06:00 BUN 20 mg/dL (7-18) H 09/20/19 06:00 Creatinine 0.98 mg/dL (0.70-1.30) 09/20/19 06:00 Estimated GFR/1.73 m2 >= 60.00 (mL/min/1.73m2) 09/20/19 06:00 Glucose 104 mg/dL (74-106) 09/20/19 06:00 Calcium 8.2 mg/dL (8.5-10.1) L 09/20/19 06:00 Magnesium 1.6 mg/dL (1.8-2.4) L 09/20/19 06:00 Total Bilirubin 1.1 mg/dL (0.2-1.0) H 09/20/19 06:00 AST 21 U/L (15-37) 09/20/19 06:00 ALT 29 U/L (16-63) 09/20/19 06:00 Alkaline Phosphatase 64 U/L (46-116) 09/20/19 06:00 Total Protein 6.6 g/dL (6.4-8.2) 09/20/19 06:00 Albumin 2.9 g/dL (3.4-5.0) L 09/20/19 06:00 Urine Color Yellow (Yellow) 09/19/19 19:30 Urine Clarity Clear (Clear) 09/19/19 19:30 Urine pH 5.5 (5-8) 09/19/19 19:30 Ur Specific [place] 1.015 (1.005-1.025) 09/19/19 19:30 Urine Protein Negative mg/dL (Negative) 09/19/19 19:30 Urine Ketones Negative mg/dL (Negative) 09/19/19: Urine Blood Moderate (Negative) H 09/19/19 19:30 Urine Nitrite Negative (Negative) 09/19/19 19:30 Urine Bilirubin Negative (Negative) 09/19/19 19: Urine Urobilinogen 0.2 EU/dL (Up TO 0.2) 09/19/19 19:30 Ur Leukocyte Esterase Moderate (Negative) H 09/19/19 19:30 Urine RBC 20-50 HPF (0-2) H 09/19/19 19:30 Urine WBC 20-50 HPF (0-5) H 09/19/19 19:30 Ur Epithelial Cells Negative HPF (Negative) 09/19/19: Urine Crystals Negative HPF (Negative) 09/19/19 19:30 Urine Bacteria Rare HPF (Negative) 09/19/19 19:30 Urine Mucus Trace (Negative) 09/19/19 19:30 Ur Culture Indicated? Yes 09/19/19: Urine Glucose Negative mg/dL (Negative) 09/19/19 19:30
--- NOTE | 2019-09-20 11:05 | W.NUTCONSULT ---
Date of service: 09/20/19 Time of Service: 11:06 Nutritional Consult ASSESSMENT: 69 year old male here for ureteral stones, admitted for IV hydration and stenting. Currently NPO for procedure later today. BMI indicates class 1 obesity. Not considered at nutritional risk at this time. NUTRITIONAL DIAGNOSIS: obesity MONITORING AND EVALUATION: will monitor po intake and weight trends Time Spent in Nutritional Counseling and Treatment: 0 time spent face to face
[2019-09-20] MEDS: GENTAMICIN 120 MG in Normal Saline 100 ML 200 MG IVPB (14:06)
[2019-09-20] MEDS: Lidocaine 2% Jelly 6 ML SYR (14:30)
[2019-09-20] MEDS: Omnipaque 300 MG/ML 50 ML BTL (14:32)
--- NOTE | 2019-09-20 15:37 | CHAPLAIN ---
Antonio was in bed when I visited. He said he hadn't had much rest since he was admitted last night. His was with him. Antonio was pleasant and waiting to hear more from the doctor before knowing what would be happening from here. I offered support and Fr. Mcgowan visited Antonio this afternoon.
--- NOTE | 2019-09-20 15:38 | DI.RAD_ITS ---
EXAM: XR RETROGRADE IN OR CLINICAL HISTORY: Calculus of ureter. TECHNIQUE: 2D and realtime digital imaging was performed. COMPARISON: No exams were available for comparison FINDINGS: Fluoroscopy was provided for Dr. Lund while performing a retrograde examination. Please see procedu re note for details. Fluoro Time: 60.5 seconds
--- NOTE | 2019-09-20 16:38 | ROE_ITS ---
DATE OF PROCEDURE: September 20, 2019 PREOPERATIVE DIAGNOSIS: Left ureteral stones. POSTOPERATIVE DIAGNOSIS: Same. PROCEDURE: Cystoscopy; left retrograde pyelogram; left semi-rigid and flexible ureteroscopies with h olmium laser lithotripsy of ureteral stone; stone extraction; insertion of left ureteral stent. SURGEON: Leonard Lund M.D. ANESTHESIA: General. COMPLICATIONS: None. FINDINGS: Two left ureteral stones. HISTORY: This is a 69-year-old gentleman with a past history significant for calcium oxalate stone d isease. He underwent ureteroscopic stone manipulation about eight years ago. He presented to the Emergency Room last evening with left-sided flank pain. He was found to have two ureteral stones. He did have some pyuria and he described chills at home. He had no fever in the E mergency Room and no elevated white count. We admitted him for hydration, analgesia and antibiotics to ensure he was not becoming septic. He was pain-free the next morning, but had not passed his stones. He elected to move ahead with uret eroscopic stone manipulation. OPERATIVE REPORT: The patient was brought to the operating room on 09/20/19. After successful induc tion of general anesthesia, he was placed in the dorsal lithotomy position. His genitalia was preppe d and draped. A 22 Hungarian rigid cystoscope was passed through the urethra into the bladder. The urethra and bladde r were inspected with the 30-degree lens. The pendulous, bulbous and membranous urethras appeared normal with no strictures. The prostatic ure thra showed lateral lobe enlargement, but no significant median lobe. The bladder neck was entered. The remainder of the bladder was inspected and no papillary or nodular tumors were seen. No stones were seen freely floating in the bladder. The left ureteral orifice was then visualized and was cannulated with a 6 Hungarian access catheter. A retrograde film was obtained by injecting Omnipaque through the access catheter under fluoroscopic gu idance. There did appear to be a distal filling defect just within the ureteral orifice. I then passed a Glidewire through the access catheter and maneuvered the wire up the left ureteral or ifice. The access catheter was removed, leaving the wire in place as a safety wire. Once the wire was passed, a large amount of urine drained from that left collecting system. I was then able to pass a semi-rigid ureteroscope through the urethra into the bladder. The scope wa s advanced into the left ureteral orifice up to the level of the pelvic brim. No stone was seen in t his area. We then removed the semi-rigid ureteroscope and advanced a dual-lumen catheter over the safety wire. We positioned the second wire as a working wire and advanced the ureteral access sheath over the wor judi wire. We then switched to the flexible ureteroscope and passed it through the access sheath up to the more proximal ureter. Two stones were seen in this location. These stones were deemed to be too large to grasp and remove in their entirety. We then used a 272 micron holmium laser fiber to fragment the stone. We initially used dusting setti ngs of power of 200 and a rate of 8. We then switched to fracturing settings of a power of 800 and a rate of 8. Multiple fragments were then grasped in a Zero Tip stone basket and removed in their entirety. The s tone fragments were sent to pathology for chemical analysis. Repeat ureteroscopy at the end of the procedure showed no large stone burden remaining. During the procedure the patient became febrile and at times his blood pressure was a bit low. He wa s also a bit tachycardic. We elected to place a ureteral stent so we chose a 4.8 variable-length emani nt and advanced it over the safety wire. The proximal end of the stent was seen in the area of the k idney and the distal end was seen in the bladder fluoroscopically. A safety string was left in place and brought through the urethra. The string was taped onto the dorsum of the penis. We also elected to place a Sauceda catheter. We passed a 16 Hungarian catheter through the urethra into t he bladder. The catheter balloon was inflated with 10 cc's of sterile water and the catheter was mary ked to gravity drainage. The patient tolerated this procedure well. There were no complications.
[2019-09-20] MEDS: cefTRIAXone 1 GM/50 ML BAG IVPB (21:29)
[2019-09-21 00:29] VITALS: BP 128/82; PULSE 63; RESP 16; TEMP 36; O2SAT 94
[2019-09-21 04:05] VITALS: BP 130/84; PULSE 56; RESP 16; TEMP 36.2; O2SAT 95
[2019-09-21] MEDS: Normal Saline 1,000 ML 150 ML IV (05:44)
[2019-09-21] MEDS: Heparin 5,000 UNITS/ML VIAL 5000 UNITS SC (05:44)
[2019-09-21 06:55] LABS: Abs Immature Grans 0.01 k/cumm (0.0-0.09); Absolute Lymphocyte Count 0.78 k/cumm (1.2-3.4); Absolute Monocyte Count 0.96 k/cumm (0.11-0.7); Absolute Neutrophil Count 7.05 k/cumm (1.2-6.7); HCT 39.7 % (40.0-50.0); HGB 13.2 g/dL (13.5-17.5); Immature Grans % 0.1; Lymphocytes % 8.9; Mean Corp. HGB Concentration 33.2 g/dL (32.0-36.0); Mean Corpuscular Volume 96.1 fL (80-95); Monocytes % 10.9; Neutrophils % 80.1; Platelet Count 191 x1000/uL (130-400); RBC 4.13 m/cumm (4.50-6.00); RBC Distribution Width 13.3 % (11.8-14.1)
[2019-09-21 07:10] LABS: BUN 20 mg/dL (7-18); CREATININE 0.63 mg/dL (0.70-1.30); Calcium 7.5 mg/dL (8.5-10.1); Chloride 107 mmol/L (98-107); Glucose 129 mg/dL (74-106); Potassium 4.3 mmol/L (3.5-5.1); Sodium 139 mmol/L (136-145)
--- NOTE | 2019-09-21 07:40 | W.PM.PROGNOT ---
Date of Service Date of service: 09/21/19 Time of Service: 07:41 Assessment and Plan Assessment and plan (1) Calculus of ureter: Status: Acute Assessment and plan: Clinically, he has improved dramatically since his procedure. I went ahead and removed his urethral catheter and his ureteral stent this morning. Both his blood and urine cultures are showing gram-positive's. These are a bit unusual in terms of patients with urosepsis who do not have chronic indwelling catheters (gram-negative's are much more common), but given his clinical course, I think we are obligated to treat him with a longer stretch of antibiotics. The final sensitivity from his initial positive blood culture is not yet available. Hopefully there is an oral antibiotic that would be appropriate for his culture and he can be discharged later today with oral antibiotics. In terms of his urology follow-up, he will need to see me in about 6 weeks. Patient to have ureteroscopy are now followed at that point with a renal ultrasound. We can also discuss his stone analysis and stone prevention at that time. I will place the order for a renal ultrasound in 6 weeks and my office will make those arrangements. Subjective Subjective Interval history since last seen: The patient feels better. He has had no fevers or chills overnight. He has no flank pain, but complains of the sensation of needing to void. Exam Narrative Exam Narrative: His vital signs are documented elsewhere He does not appear septic or toxic His urine is grossly clear Objective Objective Clinical Data: Abnormal lab results 09/21/19 09/21/19 Range/Units 06:12 06:12 RBC 4.13 L (4.50-6.00) m/cumm Hgb 13.2 L (13.5-17.5) g/dL Hct 39.7 L (40.0-50.0) % MCV 96.1 H (80-95) fL Absolute Neutrophils 7.05 H (1.2-6.7) k/cumm Absolute Lymphocytes 0.78 L (1.2-3.4) k/cumm Absolute Monocytes 0.96 H (0.11-0.7) k/cumm BUN 20 H (7-18) mg/dL Creatinine 0.63 L (0.70-1.30) mg/dL Glucose 129 H (74-106) mg/dL Calcium 7.5 L (8.5-10.1) mg/dL Vital Signs Temperature 36.2 C L 09/21/19 04:05 Temperature Source Tympanic 09/21/19 04:05 Pulse 56 L 09/21/19 04:05 Pulse Rhythm Irregular 09/21/19 01:58 Respiratory Rate 16 09/21/19 04:05 Respiratory Effort Non-Labored 09/21/19 01:58 Respiratory Depth Normal 09/21/19 01:58 Respiratory Pattern Normal 09/21/19 01:58 Blood Pressure 130/84 09/21/19 04:05 Blood Pressure Position Sitting 09/19/19 19:39 Pulse Oximetry 95 09/21/19 04:05 Respiratory End-tidal CO2 27 09/20/19 16:07 Oxygen Delivery Method Room Air 09/21/19 04:05 Oxygen Flow Rate 0 09/21/19 04:05 Pain Level 0 09/21/19 05:53 Comment 09/20/19 07:26 Intake & Output 09/20/19 09/20/19 09/21/19 11:59 23:59 11:59 Intake Total 1000 / 4613 3613 / 4613 922.5 / 922.5 Output Total 1700 / 2900 1200 / 2900 1000 / 1000 Balance -700 / 1713 2413 / 1713 -77.5 / -77.5 Weight 86.2 kg 91.3 kg Intake: IV 1000 / 4133 3133 / 4133 922.5 / 922.5 Oral 480 / 480 Output: Urine 1700 / 2900 1200 / 2900 1000 / 1000 Other: Urine Color Light Lelo Peguero Peguero Urine Appearance Clear Hematuria Hematuria Urine Odor None None Comment NO STONES NOTED. no stones noted Emesis Description None Voiding Methods Toilet Laboratory Results WBC 8.80 k/cumm (4.4-10.8) 09/21/19 06:12 RBC 4.13 m/cumm (4.50-6.00) L 09/21/19 06:12 Hgb 13.2 g/dL (13.5-17.5) L 09/21/19 06:12 Hct 39.7 % (40.0-50.0) L 09/21/19 06:12 MCV 96.1 fL (80-95) H 09/21/19 06:12 MCH 32.0 pg (27.0-33.0) 09/21/19 06:12 MCHC 33.2 g/dL (32.0-36.0) 09/21/19 06:12 RDW 13.3 % (11.8-14.1) 09/21/19 06:12 Plt Count 191 x1000/uL (130-400) 09/21/19 06:12 MPV 10.0 fL (8.0-11.0) 09/21/19 06:12 Immature Gran % 0.1 09/21/19 06:12 Neutrophils % 80.1 09/21/19 06:12 Lymphocytes % 8.9 09/21/19 06:12 Monocytes % 10.9 09/21/19 06:12 Eosinophils % 0.0 09/21/19 06:12 Basophils % 0.0 09/21/19 06:12 Absolute Neutrophils 7.05 k/cumm (1.2-6.7) H 09/21/19 06:12 Absolute Lymphocytes 0.78 k/cumm (1.2-3.4) L 09/21/19 06:12 Absolute Monocytes 0.96 k/cumm (0.11-0.7) H 09/21/19 06:12 Absolute Eosinophils 0.00 k/cumm (0.0-0.7) 09/21/19 06:12 Absolute Basophils 0.00 k/cumm (0.0-0.2) 09/21/19 06:12 PT 11.1 sec (9.3-11.0) H 09/20/19 06:00 INR 1.1 (0.9-1.1) 09/20/19 06:00 Sodium 139 mmol/L (136-145) 09/21/19 06:12 Potassium 4.3 mmol/L (3.5-5.1) 09/21/19 06:12 Chloride 107 mmol/L (98-107) 09/21/19 06:12 Carbon Dioxide 26.0 mmol/L (21.0-32.0) 09/21/19 06:12 Anion Gap 6.0 mmol/L (3-11) 09/21/19 06:12 BUN 20 mg/dL (7-18) H 09/21/19 06:12 Creatinine 0.63 mg/dL (0.70-1.30) L 09/21/19 06:12 Estimated GFR/1.73 m2 >= 60.00 (mL/min/1.73m2) 09/21/19 06:12 Glucose 129 mg/dL (74-106) H 09/21/19 06:12 Calcium 7.5 mg/dL (8.5-10.1) L 09/21/19 06:12 Magnesium 2.0 mg/dL (1.8-2.4) 09/21/19 06:12 Total Bilirubin 1.1 mg/dL (0.2-1.0) H 09/20/19 06:00 AST 21 U/L (15-37) 09/20/19 06:00 ALT 29 U/L (16-63) 09/20/19 06:00 Alkaline Phosphatase 64 U/L (46-116) 09/20/19 06:00 Total Protein 6.6 g/dL (6.4-8.2) 09/20/19 06:00 Albumin 2.9 g/dL (3.4-5.0) L 09/20/19 06:00 Urine Color Yellow (Yellow) 09/19/19 19:30 Urine Clarity Clear (Clear) 09/19/19 19:30 Urine pH 5.5 (5-8) 09/19/19 19:30 Ur Specific [place] 1.015 (1.005-1.025) 09/19/19 19:30 Urine Protein Negative mg/dL (Negative) 09/19/19 19:30 Urine Ketones Negative mg/dL (Negative) 09/19/19 19:30 Urine Blood Moderate (Negative) H 09/19/19 19:30 Urine Nitrite Negative (Negative) 09/19/19 19:30 Urine Bilirubin Negative (Negative) 09/19/19 19:30 Urine Urobilinogen 0.2 EU/dL (Up TO 0.2) 09/19/19 19:30 Ur Leukocyte Esterase Moderate (Negative) H 09/19/19 19:30 Urine RBC 20-50 HPF (0-2) H 09/19/19 19:30 Urine WBC 20-50 HPF (0-5) H 09/19/19 19:30 Ur Epithelial Cells Negative HPF (Negative) 09/19/19 19:30 Urine Crystals Negative HPF (Negative) 09/19/19 19:30 Urine Bacteria Rare HPF (Negative) 09/19/19 19:30 Urine Mucus Trace (Negative) 09/19/19 19:30 Ur Culture Indicated? Yes 09/19/19 19:30 Urine Glucose Negative mg/dL (Negative) 09/19/19 19:30
[2019-09-21] MEDS: Tamsulosin 0.4 MG CAPCR PO (07:51)
[2019-09-21] MEDS: Metoprolol 25 MG TAB PO (07:52)
[2019-09-21] MEDS: Aspirin 325 MG TAB PO (07:52)
[2019-09-21] MEDS: Multivitamin TAB 1 TAB PO (07:52)
[2019-09-21 07:55] VITALS: BP 150/93; PULSE 68; RESP 18; TEMP 36.7; O2SAT 97
[2019-09-21] MEDS: cefTRIAXone 2 GM/50 ML BAG IVPB (09:51)
[2019-09-21 12:05] VITALS: BP 150/91; PULSE 76; RESP 18; TEMP 37.2; O2SAT 99
[2019-09-21] MEDS: Acetaminophen 325 MG TAB 650 MG PO (12:21)
[2019-09-21] MEDS: Docusate Sodium 100 MG CAP PO (12:25)
--- NOTE | 2019-09-21 13:07 | W.PM.DS.N ---
Date of service: 09/21/19 Time of Service: 13:07 DS: Diagnosis Discharge Diagnosis (1) Calculus of ureter: Status: Acute Discharge Plan Disposition Patient Disposition: HOME Condition: Improving Discharge Details Chief Complaint: FlankPain Clinical Impression: Ureter, calculus Reason For Visit: LEFT URETEROLITHIASSIS WITH HYDRONEPHROSIS Admit Date/Time: 09/19/19 21:04 Admit Provider: John Zarate Attending Provider: John Zarate Primary Care Provider: Emeterio Mahmood ED Provider: Jeffrey Tao Hospital Course Hospital Course: Patient presented with L sided flank pain. CT a/p revealed at 7mm and 6mm L sided ureteral stone with mild hydronephrosis. He was febrile but HD stable. The following day he underwent cystoscopy with L ureteral stent placement. He was hypotensive and febrile during the procedure. He recevied 1 dose of gentamycin and was continued on ceftriaxone. Blood culture grew non staph aureaus staph, will further speciation pending at time of discharge, and blood cultures from the following day were negative. The initial positive cultures were thought to represent a contaminant as they were non staph aureus. Urine cultures grew 10-50K CFU mixed GP cocci which was also not though to represent true infection. Case was discussed with Dr Lund of urology who recommended 3 additional days of antibiotics with cipro for prophylaxis. Patient will follow up with Dr Lund 6 week post discharge. Home Meds and New Rx's Prescriptions: New tamsulosin 0.4 mg Capsule 0.4 mg PO DAILY Qty: 60 RF: 0 ciprofloxacin HCl [Cipro] 250 mg tablet 250 mg PO BID Qty: 6 RF: 0 Continued atorvastatin 40 mg tablet 40 mg PO DAILY Qty: 90 RF: 3 multivitamin [Multi-Day] 1 EACH tablet 1 ea PO DAILY RF: 0 omega-3 fatty acids-fish oil 1 EACH capsule 1 ea PO BID RF: 0 ibuprofen 200 MG tablet 400 mg PO Q6H PRN RF: 0 aspirin 325 MG tablet 325 mg PO DAILY Qty: 90 RF: 3 metoprolol tartrate 25 mg tablet 25 mg PO BID Qty: 180 RF: 3 Discharge Instructions Additional Instructions: you may take advil and tylenol for pain. if you develop fevers, chills, lightheadedness, worsening pain, blood in urine seek medical attention. make sure to follow up with Dr Lund in 6 weeks Activity:: Activity as Tolerated Equipment/Supplies:: No Equipment Needed Diet:: Normal Diet Discharge Orders Discharge Orders: Discharge Order (Routine); Ordered 09/21/19 Ordered By: Michelle Biswas DS: Summary Status at Discharge Functional status at discharge: independent ambulation Overall status at discharge: patient is back to baseline Mental Status: mental status grossly normal Speech and Movement: speech and movement normal Mood: congruent mood Affect: normal affect Time Spent with Patient providing and/or coordinating discharge services: Less than 30 minutes Exam Narrative Exam Narrative: GEN: NAD, non toxic CV: RRR LUNGS: CTAB BACK: no CVA tenderness : no suprapubic tenderness Psych Mental Status: mental status grossly normal Speech and Movement: speech and movement normal Mood: congruent mood Affect: normal affect DS: Data Vitals/I&O Vitals and I&O: Vital Signs Temperature 37.2 C 09/21/19 12:05 Temperature Source Skin 09/21/19 12:05 Pulse 76 09/21/19 12:05 Pulse Rhythm Irregular 09/21/19 07:55 Respiratory Rate 18 09/21/19 12:05 Respiratory Effort Non-Labored 09/21/19 07:55 Respiratory Depth Normal 09/21/19 07:55 Respiratory Pattern Normal 09/21/19 07:55 Blood Pressure 150/91 H 09/21/19 12:05 Blood Pressure Position Sitting 09/19/19 19:39 Pulse Oximetry 99 09/21/19 12:05 Respiratory End-tidal CO2 27 09/20/19 16:07 Oxygen Delivery Method Room Air 09/21/19 12:05 Oxygen Flow Rate 0 09/21/19 12:05 Pain Level 5 09/21/19 12:21 Comment 09/21/19 12:05 Intake & Output 09/20/19 09/21/19 09/21/19 23:59 11:59 23:59 Intake Total 3613 / 4613 1402.5 / 1402.5 Output Total 1200 / 2900 1150 / 1300 150 / 1300 Balance 2413 / 1713 252.5 / 102.5 -150 / 102.5 Weight 91.3 kg Intake: IV 3133 / 4133 922.5 / 922.5 Oral 480 / 480 480 / 480 Output: Urine 1200 / 2900 1150 / 1300 150 / 1300 Other: Urine Color Peguero Dark Lelo Urine Appearance Hematuria Hematuria Clear Urine Odor None Strong Comment no stones noted cathether and stent discontinued by Ryann Lund around 0740 strained with one tiny clot noted Emesis Description None Voiding Methods Urinal Data Completed and Pending Labs on day of discharge: Labs from last 24 hours 09/21/19 09/21/19 09/20/19 06:12 06:12 15:15 WBC 8.80 RBC 4.13 L Hgb 13.2 L Hct 39.7 L MCV 96.1 H MCH 32.0 MCHC 33.2 RDW 13.3 Plt Count 191 MPV 10.0 Immature Gran % 0.1 Neutrophils % 80.1 Lymphocytes % 8.9 Monocytes % 10.9 Eosinophils % 0.0 Basophils % 0.0 Absolute Neutrophils 7.05 H Absolute Lymphocytes 0.78 L Absolute Monocytes 0.96 H Absolute Eosinophils 0.00 Absolute Basophils 0.00 Sodium 139 Potassium 4.3 Chloride 107 Carbon Dioxide 26.0 Anion Gap 6.0 BUN 20 H Creatinine 0.63 L Estimated GFR/1.73 m2 >= 60.00 Glucose 129 H Calcium 7.5 L Magnesium 2.0 Stone Source Pending Stone Comment Pending Kidney Stone Analysis Pending Preliminary micro results at discharge 09/19/19 00:10 Blood Culture - Preliminary Blood Staph Sp., Not Aureus 09/20/19 08:10 Blood Culture - Preliminary Blood NO GROWTH 24 HOURS PFSH Medical History 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) CAD (coronary artery disease) (Chronic 09/01/17) With angina - unspecified per Dr Monique @ [facility] Calculus of ureter (Acute 02/03/13) Cor athrscl-uns vessel (Chronic 10/14/11) Stent LAD 2005; [facility] q 2y; Dr Monique 08/2017 History of kidney stones (Chronic 07/29/17) Hyperlipidemia (Chronic 10/14/11) LDL goal 80 Obesity (Chronic 02/09/14) Osteoarthritis of left shoulder (Chronic 09/02/14) Dr Liu Unspecified essential hypertension (Chronic 09/01/17) per [facility] [place], Dr Aj Monique Surgical History H/O heart artery stent (Chronic ~2005) LAD H/O umbilical hernia repair (Acute 01/03/11) Repair of umbilical hernia (06/18/13) Dr Sal-laparoscopic umbilical herniorraphy w/removal of old mesh-recurrent Status post cataract extraction and insertion of intraocular lens of right eye (Acute 02/22/11) Family History Father , [place] at age 51. Diabetes oral and insulin tx Heart disease Social History Smoking/Tobacco Use Status: Former Tobacco Use Quit Date: 11/19/84 Alcohol Intake: never Drug use: Never Substance use type: does not use Household members: spouse Housing: house Number of Children: 2 current occupation: [employer] What type of physical activity do you participate in: other Details: mowing/weedwhacking Working smoke detector in home: Yes Fire extinguisher in home: Yes Carbon monox detector in home: Yes Do you feel safe at home: Yes Do you feel safe in your relationship?: Yes
--- NOTE | 2019-09-21 14:21 | PDOC.CMDIS ---
- If Service Date Differs Date of service: 09/21/19 Time of Service: 14:21 LACE Index Scoring Tool - Questions: Length of Stay (in days): 2 Acuity (Admit via E.D.?): Yes Comorbidities: Cerebrovascular Disease E.D. Visits: 1 - Answers: Total Score: 7 Risk of Readmission: Low Risk Care Management Discharge Reason for Hospitalization: Left ureterolithiasis with hydronephrosis. Discharge Plan: Antonio is being discharged home with no new services. He will follow up with his PCP and with Dr. Lund as directed. Antonio's will transport him home via private vehicle. Patient/Family Education Needs: Nursing will review discharge instructions with Antonio re medications and follow-up appointments. Antonio is able to verbalize reason for hospitalization and how to manage care at home.
[2019-09-28 09:00] LABS: Source: Left Ureter
== END 2019-09-21 14:28 | disposition home or self-care (01) | DRG 669 ==
LOC: ER 21:19 → MS 09-20 10:44
PROVIDERS: Nurse Practitioner Family; Urology; Admitting Provider Family Medicine; Emergency Provider Emergency Medicine; PCP Family Medicine; Visit Provider Internal Medicine
PROC: 0TC78ZZ Extirpation of Matter from Left Ureter, Via Natural or Artificial Opening Endoscopic (ICD-10-PCS; CPT 52356; principal; 2019-09-20 13:15)
DX: N13.2 Hydronephrosis with renal and ureteral calculous obstruction (principal); I97.88 Other intraoperative complications of the circulatory system, not elsewhere classified; I95.89 Other hypotension; Y83.8 Other surgical procedures as the cause of abnormal reaction of the patient, or of later complication, without mention of misadventure at the time of the procedure; R50.9 Fever, unspecified; Z87.442 Personal history of urinary calculi; I25.10 Atherosclerotic heart disease of native coronary artery without angina pectoris; I10 Essential (primary) hypertension; E78.5 Hyperlipidemia, unspecified
CPT/HCPCS: 52356; 36415; 80048; 80053; 85027; 87040; 87077; 96361; 96365; 96375; 99222; 99232; 99233; 99238; 99253; 99285; 74176; 74420; 81003; 81015; 82365; 83735; 85025; 85610; 87086; 87186; J0696; J1100; J1580; J1644; J1885; J2405; J3010; J3475; Q9967

== ENCOUNTER 2019-11-05 01:47 | Outpatient (CLI) | payer MEDICARE, SELFPAY ==
--- NOTE | 2019-11-05 13:42 | DI.US_ITS ---
EXAM: US RENAL CLINICAL HISTORY: R/O RESIDUAL HYDRONEPHROSIS N20.1 CALCULUS OF URETER TECHNIQUE: Ultrasound performed using standard protocol. COMPARISON: US LOWER EXTREMITY VASCULAR LT from 04/07/2019 CT ABDOMEN PELVIS WO from 09/19/2019 FINDINGS: The kidneys contain parapelvic cysts bilaterally. No gross hydronephrosis identified on either side. There is a calcification of the lower pole of the left kidney measuring about 7 millimeters in diam eter consistent with nonobstructing calculus. There is also an apparent left renal lower pole cyst, which may have partially calcified. IMPRESSION: No gross hydronephrosis identified on this examination. Bilateral parapelvic cysts noted. Probable non-obstructing left lower pole renal calculus. Additional evaluation with CT urogram could prove helpful in excluding localized infundibular/calicea l dilatation in the presence of multiple parapelvic cysts.
== END 2019-11-05 02:07 ==
PROVIDERS: PCP Family Medicine; Visit Provider Urology
DX: N20.1 Calculus of ureter (principal); N13.30 Unspecified hydronephrosis
CPT/HCPCS: 76770; 99213

== ENCOUNTER 2019-11-14 11:06 | Outpatient (REF) | payer MEDICARE, SELFPAY ==
[2019-11-14 11:52] LABS: Creatinine,Urine 113.83 mg/dL; Sodium, Urine 122 mmol/L
[2019-11-14 12:07] LABS: CLEAVED CELLS 146 mmol/24h (40-220); Creatinine,24hr Ur 1.37 g/24hr (0.95-2.49); Total Volume 1200 ml
[2019-11-16 09:37] LABS: Uric Acid Urine 51.9 mg/dL (See Note); Uric Acid Urine 24hr 623 mg/24hrs (250-750)
[2019-11-16 09:38] LABS: Magnesium 24hr Urine 145.2 mg/24hrs (12.0-192.0); Magnesium Random Urine 12.1 mg/dL (See Note)
[2019-11-16 09:40] LABS: Phosphorus Urine 24hr 1.3 g/24hrs (0.4-1.3); Timed Urine Volume 1200 mL
[2019-11-16 10:00] LABS: Calcium Urine 32.3 mg/dL (See Note); Calcium Urine 24 hr 388 mg/24hrs (100-300)
[2019-11-16 10:34] LABS: Timed Urine Volume 1200 mL
[2019-11-16 10:36] LABS: Timed Urine Volume 1200 mL
[2019-11-16 10:37] LABS: Timed Urine Volume 1200 mL
[2019-11-16 18:27] LABS: Citrate Excretion, 24hr, U 1286 mg/24 h; Urine Volume 1200 mL
[2019-11-17 11:35] LABS: Oxalate Conc (mmol/L) 0.12 mmol/L; Oxalate Concentration 10.6 mg/L; Oxalate, U 0.14 mmol/24 h (0.11-0.46); Oxalate, U 12.3 mg/24 h (9.7 - 40.5); Urine Volume 1200 mL
== END 2019-11-14 11:26 ==
LOC: LBN 11:06
PROVIDERS: PCP Family Medicine; Visit Provider Urology
DX: N20.1 Calculus of ureter (principal); Z87.442 Personal history of urinary calculi
CPT/HCPCS: 82507; 83735; 81050; 82340; 82570; 83945; 84105; 84300; 84560

== ENCOUNTER 2019-12-07 13:22 | Outpatient (REF) | payer MEDICARE, SELFPAY ==
[2019-12-07 14:22] LABS: Calculated LDL 85 mg/dL (<100); Cholesterol 151 mg/dL (<200); HDL Cholesterol 50 mg/dL (40-60); Triglyceride 80 mg/dL (<150)
== END 2019-12-07 13:42 ==
LOC: LBN 13:22
PROVIDERS: PCP Family Medicine; Visit Provider Family Medicine
DX: I25.10 Atherosclerotic heart disease of native coronary artery without angina pectoris (principal)
CPT/HCPCS: 80061

== ENCOUNTER 2020-05-05 09:06 | Day surgery (SDC) | payer MEDICARE, SELFPAY ==
[2020-05-05 09:26] VITALS: BP 152/91; PULSE 67; RESP 16; TEMP 35.8; O2SAT 98
[2020-05-05] MEDS: Tetracaine 0.5% 4 ML BTL OS (11:09)
[2020-05-05] MEDS: Lidocaine 2% Jelly 6 ML SYR (11:10)
[2020-05-05] MEDS: Lidocaine 1% Pres-Free 5 ML VIAL (11:16)
[2020-05-05] MEDS: Moxifloxacin-PF 1 MG/ML VIAL (11:18)
[2020-05-05] MEDS: Balanced Salt Soln.-PLUS 500 ML BAG (11:19)
[2020-05-05] MEDS: Povidone-Iodine Ophth 30 ML BTL (11:22)
--- NOTE | 2020-05-05 11:35 | W.PM.DSUDISC ---
Discharge Plan Disposition Patient Disposition: HOME Condition: Good Discharge Details Attending Provider: Brennen Montana Primary Care Provider: Emeterio Mahmood Home Meds and New Rx's Prescriptions: No Action metoprolol tartrate 25 mg tablet 25 mg PO BID Qty: 180 RF: 3 multivitamin [Multi-Day] 1 EACH tablet 1 ea PO DAILY RF: 0 omega-3 fatty acids-fish oil 1 EACH capsule 1 ea PO BID RF: 0 ibuprofen 200 MG tablet 400 mg PO Q6H PRN RF: 0 aspirin 325 MG tablet 325 mg PO DAILY Qty: 90 RF: 3 atorvastatin 40 mg tablet 40 mg PO HS RF: 0 lisinopril 10 mg tablet 10 mg PO HS RF: 0 Discharge Instructions Stand Alone Forms: Post-op Topical Cataract, Khushi Lim (DSU) Discharge Orders Discharge Orders: Discharge Order (Routine); Ordered 05/05/20 Ordered By: Brennen Montana DS: Diagnosis Discharge Diagnosis (1) Nuclear sclerotic cataract of left eye: Status: Resolved (2) Cortical cataract of left eye: Status: Resolved
--- NOTE | 2020-05-05 11:36 | ROE_ITS ---
Date of service: 05/05/20 Time of Service: 11:36 Operative Note Operative Note DATE OF PROCEDURE: 05/05/20 PRE-OP DIAGNOSIS: Nuclear/cortical cataract, left eye POST-OP DIAGNOSIS: same PROCEDURE: Cataract extraction using phacoemulsification with intraocular lens implant, left eye SURGEON: Brennen Montana ANESTHESIA: MAC and local (sub-tenon's anesthetic infiltration) PATHOLOGY: none sent COMPLICATIONS: None Patient was transported to: same day Patient's condition: stable Implants: Cl and Cl Vision / [employer] Tecnis [id number] Indications: Progressive decreased vision due to cataract, left eye Procedure Description: CATARACT SURGERY OPERATIVE REPORT PREOPERATIVE DIAGNOSIS: Nuclear/cortical cataract, left eye POSTOPERATIVE DIAGNOSIS: Same OPERATION: Cataract extraction using phacoemulsification with posterior chamber intraocular lens implant, left eye. IOL: IOL Arc Welding Machine Operator/Model: J&J Vision / SALENA Tecnis ZCB00 IOL Power: + 17.50 diopters IOL Serial Number: [id number] Optic Diameter: 6.0mm Haptic/Overall Diameter: 13.0mm PHACO INFO: Bradley [employer]urion Vision System with OZil and Active Fluidics Cumulative Dispersed Energy (CDE): 5.77 seconds SURGEON: Brennen Montana MD, FAVIAN ANESTHESIA: Monitored Anesthesia Care (MAC), with local sub-tenon's anesthetic infiltration COMPLICATIONS: None SPECIMENS: None INDICATIONS FOR PROCEDURE: Patient is a 70-year-old gentleman with history of diminished visual acuity in both eyes secondary to the development of bilateral nuclear and cortical cataract. The option of cataract surgery was offered to the patient and he felt he was symptomatic enough that he wished to proceed. PROCEDURE: The correct surgical eye was identified and marked as the left eye and the pupil was dilated in the preoperative area using mydriatics and cycloplegics. The dilated pupil size was 7.0 mm. Oral sedation was administered in the form of an Imprimis MKO Melt (midazolam 3mg/ketamine 25mg/ondansetron 2mg). The patient was brought to the operating room where cardiopulmonary m onitoring was instituted and surgical time-out was performed, confirming the correct operative eye and IOL power. Topical anesthesia was administered and ophthalmic povidone-iodine 5% was instilled into the conjunctival fornices. Lidocaine gel was applied to the cornea and the emilee-ocular area was prepped with Betadine 10% solution and draped in the usual sterile fashion for intraocular surgery, including an aperture drape. A Tegaderm transparent film dressing was cut in half and used to cover the lashes and lid margins. Care was taken to sequester the lashes and lid margins under the Tegaderm dressing. A lid speculum was placed between the lids of the operative eye and the Anupama-Mayelin operating microscope was maneuvered into position. Avery scissors were then used to make a conjunctival buttonhole approximately 6mm posterior to the limbus in the inferonasal quadrant. Blunt dissection was carried out to expose bare sclera, and a blunt-tipped sub-tenon?s anesthesia cannula was introduced and passed posteriorly along the globe where non- preserved plain lidocaine was injected into posterior sub-Tenon?s space. A sideport knife was used to make a paracentesis port superior/superiortemporally. Intraocular phenylephrine/lidocaine was injected into the anterior chamber. The anterior chamber was then filled with Healon Pro. A 2.4mm keratome knife was used to create a half-thickness groove at the limbus and then to construct a three-plane near-clear corneal tunnel extending 2.0mm into clear cornea in the temporal position. . A flap was raised on the anterior capsule and capsulorhexis forceps were used to complete a continuous curvilinear capsulorhexis of 5.0 mm. Balanced salt solution was then used to perform cortical cleaving hydrodissection and nuclear hydrodelineation until the lens could be freely rotated within the capsular bag. The lens nucleus was then disassembled and removed within the capsular bag and iris plane using phacoemulsification. Residual cortical material was removed using the 45-degree angled silicone I/A tip with 0.3mm port. The posterior capsule was carefully polished to remove as much residual lens epithelial cells as safely possible. The capsular bag was then inflated and the anterior chamber deepened with viscoelastic. The lens implant described above was inserted into the capsular bag using the SALENA [place] Injector. A Kuglen hook was used to dial the IOL into position. Residual viscoelastic was then removed first from posterior to the IOL, then from the anterior chamber using the I/A handpiece. The lens implant was noted to center nicely within the capsular bag. The incisions were stromally hydrated, and the anterior chamber was reformed using BSS. Then 0.5cc of moxifloxacin 1.0mg/ml were injected into the capsular bag and anterior chamber. The incisions were checked with a Weck spear and found to be secure. Several drops of ophthalmic povidone-iodine 5% were then applied to the eye followed by two drops of Imprimis combination prednisolone/moxifloxacin/nepafenac solution. The drapes were removed and a clear plastic protective eye shield was placed over the eye. The patient was then returned to Same Day Surgery in stable condition.
== END 2020-05-05 12:09 | disposition home or self-care (01) ==
PROVIDERS: PCP Family Medicine; Visit Provider Ophthalmology
PROC: (CPT 66984; principal; 2020-05-05 11:30)
DX: H25.12 Age-related nuclear cataract, left eye (principal); H25.012 Cortical age-related cataract, left eye; I10 Essential (primary) hypertension; E66.9 Obesity, unspecified
CPT/HCPCS: 66984; V2632

== ENCOUNTER 2020-11-23 09:54 | Outpatient (CLI) | payer MEDICARE, SELFPAY ==
[2020-11-24 16:41] LABS: COVID-19 RT-PCR UVMMC Result Positive (Negative)
== END 2020-11-23 09:55 | disposition home or self-care (01) ==
LOC: LBO 09:55
PROVIDERS: PCP Family Medicine; Visit Provider Family Medicine
DX: Z20.822 Contact with and (suspected) exposure to COVID-19 (principal)
CPT/HCPCS: U0003; U0005

== ENCOUNTER 2021-01-18 01:43 | Outpatient (CLI) | payer MEDICARE, SELFPAY ==
--- NOTE | 2021-01-18 07:00 | DI.US_ITS ---
EXAM: US AAA SCREENING CLINICAL HISTORY: SCREENING FOR AAA, H/O SMOKING, Z13.6 COMPARISON: US US RENAL from 11/05/2019 FINDINGS: Abdominal Aorta: Proximal: 0.7 x 2.6 cm Mid: 2.1 x 1.7 cm Distal: 1.9 x 1 cm Iliac's: Right: 1.3 x 1.7 cm Left: 1.2 x 1.2 cm IMPRESSION: No evidence of abdominal aortic aneurysm. Mild arterial megaly of the visualized common iliac arteries. DATA REPOSITORY:
== END 2021-01-18 02:03 ==
PROVIDERS: PCP Family Medicine; Visit Provider Family Medicine
DX: Z13.6 Encounter for screening for cardiovascular disorders (principal); Z87.891 Personal history of nicotine dependence
CPT/HCPCS: 76706

== ENCOUNTER → 2021-07-27 15:05 | Outpatient (BNVA) | payer MEDICARE, SELFPAY | PROVIDERS: PCP Family Medicine; Referring Provider Family Medicine; Visit Provider Urology | DX: N20.0 Calculus of kidney (principal) | CPT/HCPCS: 99213 ==

== ENCOUNTER 2021-08-07 01:02 | Outpatient (CLI) | payer MEDICARE, SELFPAY ==
--- NOTE | 2021-08-07 07:45 | DI.CT_ITS ---
Exam(s) CT ABDOMEN PELVIS WO EXAM: CT ABDOMEN PELVIS WO INDICATION: kidney stone evaluation,N20.0. COMPARISON: CT CT ABDOMEN PELVIS WO from 09/19/2019 TECHNIQUE: CT examination was performed without contrast administration. FINDINGS: Images obtained through the lung bases are unremarkable. Visualized portions of the liver and splee n appear intact. Note is made of coronary artery calcification Visualized portions of the pancreas are unremarkable. Gallbladder and bile ducts are CT normal. Abdominal aorta is of normal diameter. No significant abdominal wall hernia. No significant abdominal or pelvic adenopathy. Adrenals appear normal bilaterally. There are multiple small bilateral nonobstructing renal calculi. There are also presumed bilateral m ultiple renal pelvic cysts. There is no evidence of hydronephrosis or ureteral calcification. Urina ry bladder is nearly empty but may be thick-walled. IMPRESSION: Multiple bilateral nonobstructing renal calculi. No other significant findings. RADIATION DOSE DELIVERED: 984.8mGy.cm DLP 984.8mGy.cm Total DLP 19.01mGy CTDIvol RADIATION OPTIMIZATION: All CT scans at this facility use at least one of these dose optimization te chniques: automated exposure control; mA and/or kV adjustment per patient size (includes targeted exa ms where dose is matched to clinical indication); or iterative reconstruction.
== END 2021-08-07 01:22 ==
PROVIDERS: PCP Family Medicine; Visit Provider Urology
DX: N20.0 Calculus of kidney (principal)
CPT/HCPCS: 74176

== ENCOUNTER → 2021-08-10 14:52 | Outpatient (BNVA) | payer MEDICARE, SELFPAY | PROVIDERS: PCP Family Medicine; Referring Provider Family Medicine; Visit Provider Urology | DX: N40.0 Benign prostatic hyperplasia without lower urinary tract symptoms (principal); N20.0 Calculus of kidney | CPT/HCPCS: 99214 ==

== ENCOUNTER 2022-01-29 05:15 | Outpatient (CLI) | payer MEDICARE, SELFPAY | END 2022-01-29 05:16 | disposition home or self-care (01) | PROVIDERS: PCP Family Medicine; Visit Provider Family Medicine ==

== ENCOUNTER 2022-02-06 01:37 | Outpatient (CLI) | payer MEDICARE, SELFPAY ==
[2022-02-06 14:24] LABS: Anion Gap 6.3 mmol/L (3-11); BUN 21 mg/dL (7-18); CO2 29.7 mmol/L (21.0-32.0); CREATININE 0.7 mg/dL (0.70-1.30); Chloride 104 mmol/L (98-107); Glucose 86 mg/dL (74-106); Sodium 140 mmol/L (136-145)
[2022-02-06 22:36] LABS: PSA, Diagnostic 0.6 ng/mL (<=6.5)
[2022-02-07 10:56] LABS: HIV-1/2 Ag & Ab Screen Negative (Negative)
[2022-02-07 11:10] LABS: Hepatitis C Ab w Rflx HCV PCR Negative (Negative)
== END 2022-02-06 01:38 | disposition home or self-care (01) ==
LOC: LBO 01:37
PROVIDERS: Urology; PCP Family Medicine; Visit Provider Family Medicine
DX: I10 Essential (primary) hypertension (principal); N40.0 Benign prostatic hyperplasia without lower urinary tract symptoms; Z11.59 Encounter for screening for other viral diseases; Z11.4 Encounter for screening for human immunodeficiency virus [HIV]
CPT/HCPCS: 36415; 80048; 86803; 87389; 84153

== ENCOUNTER 2022-03-11 14:53 | Outpatient (CLI) | payer MEDICARE, SELFPAY ==
--- NOTE | 2022-03-11 14:45 | RT.EKG_ITS ---
APPROVED REPORT Exam: Resting ECG Reason for Exam: vertigo, dizziness Patient Location: O HR:68 bpm ECG Measurements Heart Rate 68 AXIS ME 167 P 42 QRSd 140 QRS -68 QT 430 T 23 QTc 456 Conclusion Sinus rhythm...normal P axis, V-rate 60- 99 RBBB and LAFB...QRSd >120mS, axis(-40,240)
== END 2022-03-11 14:54 | disposition home or self-care (01) ==
LOC: DI.KIM 14:56
PROVIDERS: PCP Family Medicine; Visit Provider Family Medicine
DX: R42 Dizziness and giddiness (principal)
CPT/HCPCS: 93010

== ENCOUNTER 2022-08-07 21:25 | Emergency (ER) | payer MEDICARE, SELFPAY ==
--- NOTE | 2022-08-07 21:15 | RT.EKG_ITS ---
APPROVED REPORT Exam: Resting ECG Reason for Exam: chest pain Patient Location: E HR:73 bpm ECG Measurements Heart Rate 73 AXIS MA 157 P 51 QRSd 139 QRS -46 QT 418 T 12 QTc 460 Conclusion Sinus rhythm...normal P axis, V-rate 60- 99 RBBB and LAFB...QRSd >120mS, axis(-40,240)
[2022-08-07 21:29] VITALS: BP 159/96; PULSE 70; RESP 18; TEMP 36.7; O2SAT 97
--- NOTE | 2022-08-07 21:30 | DI.RAD_ITS ---
Exam(s) XR PORTABLE CHEST AP EXAM: XR PORTABLE CHEST AP CLINICAL HISTORY: chest pain. TECHNIQUE: 2D digital imaging was performed. COMPARISON: CR,RF BARIUM SWALLOW W PA LAT CXR from 07/30/2012 FINDINGS: LUNGS: Clear. No pleural abnormality seen. HEART: Normal. MEDIASTINUM: Normal. OTHER FINDINGS: None. IMPRESSION: No acute pulmonary findings. DATA REPOSITORY: RADIATION DOSE DELIVERED: Total DLP
--- NOTE | 2022-08-07 21:41 | W.ED.GENAD ---
Discharge Plan Disposition Patient Disposition: HOME Condition: Stable Discharge Details Clinical Impression: Chest pain Primary Care Provider: Emeterio Mahmood ED Provider: Agusto Galicia Home Meds and New Rx's Prescriptions: Continued multivitamin [Multi-Day] 1 EACH tablet 1 ea PO DAILY omega-3 fatty acids-fish oil 1 EACH capsule 1 ea PO BID ibuprofen 200 MG tablet 400 mg PO Q6H PRN aspirin 325 MG tablet 325 mg PO DAILY Qty: 90 lisinopril 10 mg tablet 10 mg PO HS Qty: 90 3RF atorvastatin 40 mg tablet 40 mg PO HS Qty: 90 3RF metoprolol tartrate 25 mg tablet 25 mg PO BID Qty: 180 3RF Discharge Instructions Instructions: Chest Pain (ED) Additional Instructions: follow up with your primary care provider within 1 week if you feel more ill, have difficulty breathing or have severe worsening pain return to the emergency department Medical Decision Making 72 yo male with hx of cad with stent placement years ago per patient, hld, htn, who comes in with complaints of aching intermittently of the left chest. He states it has been going on intermittently since this morning and describes an aching over left pectoral muscle that lasts a few seconds then goes away. He denies any radiation of the pain, n/v, diaphoresis, dyspnea. He currently has no pain and appears well speaking in full sentences. He has clear lungs, no murmurs, soft nontender abdomen, no leg swelling or calf tenderness and no jvd. Given his history will obtain a troponin though his symptoms seem atypical. No evidence of dvt on exam, no hypoxia or tachycardia so doubt pe. Has no tearing back pain and strong equal peripheral pulses so doubt dissection. xray and labs unremarkable, has had symptoms for well over 3 hours so do not feel delta troponin indicated, he has no pain and is stable and symptoms not consistent with acs. He is stable for d/c and return precautions given Differential Diagnosis Differential Diagnosis: nstemi, chest wall pain Medical Records Medical records reviewed: Yes I reviewed the patient's medical records. Imaging Data Radiologic Study: Attestation: I personally reviewed and interpreted this imaging study as follows: Imaging: X-Ray My impression: no acute findings Lab Data Lab results reviewed: Yes I reviewed the patient's lab results. ECG Data Attestation: I personally reviewed and interpreted this ECG (s) as follows: Prior ECG tracings: available for review Interpretation: sinus rhythm, rate of 73, rbbb and lafb, no acute st t wave ischemic findings HPI General Mode of arrival: ambulatory. Date/Time Provider Initiated Documentation: 08/07/22 21:28. Limitations to Documentation: no limitations. Information obtained by: patient. History of Present Illness 72 year old M presents to the emergency department with the chief complaint of chest pain, described as moderate, Quality is described as aching, Patient started experiencing this hour(s) (12) and it has been intermittent. No relieving factors improve symptom(s), No exacerbating factors reported . Patient notes no other symptoms.. Patient did receive the following treatments prior to arrival, none Related Data Home Medications Medication Instructions Recorded Confirmed multivitamin (Multi-Day tablet) 1 ea PO DAILY 01/11/13 08/07/22 omega-3 fatty acids-fish oil 300 1 ea PO BID 01/11/13 08/07/22 mg-1,000 mg capsule ibuprofen 200 mg tablet 400 mg PO Q6H PRN 07/12/14 08/07/22 aspirin 325 mg tablet 325 mg PO DAILY #90 tabs 10/21/14 08/07/22 lisinopril 10 mg tablet 10 mg PO HS #90 tabs 12/25/21 08/07/22 atorvastatin 40 mg tablet 40 mg PO HS #90 tabs 02/25/22 08/07/22 metoprolol tartrate 25 mg tablet 25 mg PO BID #180 tabs 05/07/22 08/07/22 Previous Rx's Medication Instructions Recorded lisinopril 10 mg tablet 10 mg PO HS #90 tabs 12/25/21 atorvastatin 40 mg tablet 40 mg PO HS #90 tabs 02/25/22 metoprolol tartrate 25 mg tablet 25 mg PO BID #180 tabs 05/07/22 Allergies Allergy/AdvReac Type Severity Reaction Status Date / Time No Known Drug Allergies Allergy Verified 07/02/22 13:14 General Stated Complaint: Chest Pain VICENTA: 3 Review of Systems All systems reviewed & are unremarkable except as noted in HPI and below Constitutional Constitutional: Denies chills, Denies fever(s) and Denies weakness Cardiovascular Cardiovascular: Denies dyspnea Respiratory Respiratory: Denies cough and Denies dyspnea Gastrointestinal Gastrointestinal: Denies abdominal pain, Denies nausea and Denies vomiting Integumentary/Breasts Skin/Breast: Denies rash Neurologic Neurologic: Denies weakness PFSH All Active Problems (Updated 08/07/22 @ 22:21 by Agusto Galicia MD) Chest pain (Acute) Mixed conductive and sensorineural hearing loss of left ear with restricted hearing of right ear (Acute) Impacted cerumen of both ears (Acute) Benign paroxysmal positional vertigo (Acute) Pre-syncope (Acute) Vitreous degeneration (Acute) 01/22/21 [place] note Puckering of macula, left eye (Acute) 01/22/21 [place] note 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, right (Acute) Loss of taste (Acute) Nocturnal leg cramps (Acute) 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) CAD (coronary artery disease) (Chronic 09/01/17) With angina - unspecified [place] [facility] [place]; did not tolerate full statin dose Cor athrscl-uns vessel (Chronic 10/14/11) Stent [place] 2005; [facility] [place]; Dr Monique 08/2017 History of kidney stones (Chronic 07/29/17) Hyperlipidemia (Chronic 10/14/11) LDL goal 80 Unspecified essential hypertension (Chronic 09/01/17) [place] [facility] [place] Dr Aj Monique Obesity (Chronic 02/09/14) 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 Diabetes oral and insulin tx Heart disease Social History Smoking/Tobacco Use Status: Former Tobacco Use tobacco type: cigarettes Quit Date: 11/19/84 Tobacco: How many years used: 15 Second Hand Exposure: No Smoking risk assessment performed?: Yes Alcohol Intake: never Drug use: Never Substance use type: does not use Household members: spouse Housing: house Number of Children: 2 Communication Needs: None current occupation: [employer] Do you think of yourself as: straight/heterosexual Current gender identity: male What is your relationship status?: How often do you talk on the phone with friends or family?: twice per week Do you belong to any clubs or organized social groups?: yes Panel score (0-1 are the most socially isolated patients): 2 What type of physical activity do you participate in: other Details: mowing/weedwhacking Violeta/Roman Catholic: Sikhism Seatbelt use: always Helmet use: Yes Helmet use: always Drive intox or ride w/intox entry level truck driver: No Working smoke detector in home: Yes Fire extinguisher in home: Yes Carbon monox detector in home: Yes Do you feel safe at home: Yes Do you feel safe in your relationship?: Yes Exam Const General: no acute distress Orientation: alert HENMT Head: normal to inspection Ears: external ears normal General nose exam: external nose normal Mouth: moist mucous membranes Eyes General: appearance normal, both eyes and all related structures Neck Neck: normal visual inspection Chest Chest: normal inspection of the chest and no crepitus Resp Effort & Inspection: normal respiratory effort, able to speak in complete sentences and no audible wheezes Cardio Rate: regular rate Heart Sounds: no murmurs Skin General skin exam: no rashes or lesions noted Neuro General: patient alert and patient oriented x3 Extrem General: normal to inspection Psych Mental Status: mental status grossly normal Course Vital Signs Vital signs: Vital Signs Temperature 36.7 C 08/07/22 21:29 Pulse 70 08/07/22 21:29 Respiratory Rate 18 08/07/22 21:29 Blood Pressure 159/96 H 08/07/22 21:29 Pulse Oximetry 97 08/07/22 21:29 Temperature 36.7 C 08/07/22 21:29 Temperature Source Tympanic 08/07/22 21:29 Pulse 70 08/07/22 21:29 Respiratory Rate 18 08/07/22 21:29 Respiratory Effort 08/07/22 21:33 Respiratory Depth Normal 08/07/22 21:33 Respiratory Pattern Normal 08/07/22 21:33 Blood Pressure 159/96 H 08/07/22 21:29 Blood Pressure Position Supine 08/07/22 21:29 Pulse Oximetry 97 08/07/22 21:29 Oxygen Delivery Method Room Air 08/07/22 21:29 Oxygen Flow Rate 0 08/07/22 21:29 Pain Level 4 08/07/22 21:29
[2022-08-07 21:47] LABS: Abs Immature Grans 0.02 10^3/uL (0.0-0.06); Absolute Basophil Count 0.04 10^3/uL (0.0-0.2); Absolute Eosinophil Count 0.09 10^3/uL (0.0-0.7); Absolute Lymphocyte Count 2.56 10^3/uL (1.2-3.4); Absolute Monocyte Count 0.88 10^3/uL (0.1-0.8); Absolute Neutrophil Count 4.26 10^3/uL (1.2-6.7); Basophils % 0.5; Eosinophils % 1.1; HCT 44.6 % (40.0-50.0); HGB 14.8 g/dL (13.5-17.5); Immature Grans % 0.3; Lymphocytes % 32.6; MCH 31.8 pg (27.0-33.0); MCHC 33.2 % (32.0-36.0); MCV 96 fL (80-95); MPV 9.4 fL (8.0-11.0); Monocytes % 11.2; Neutrophils % 54.3; Platelet Count 235 10^3/uL (130-400); RBC 4.66 10^6/uL (4.36-5.78); RDW 12.7 % (11.8-14.1); RDW-SD 44.7 fL; WBC 7.85 10^3/uL (4.4-10.8)
[2022-08-07 22:06] LABS: ALT 42 U/L (16-63); AST 30 U/L (15-37); Albumin 3.6 g/dL (3.4-5.0); Alkaline Phosphatase 96 U/L (46-116); Anion Gap 6.2 mmol/L (3-11); BUN 27 mg/dL (7-18); Bilirubin, Total 0.9 mg/dL (0.2-1.0); CO2 27.8 mmol/L (21.0-32.0); CREATININE 0.8 mg/dL (0.70-1.30); Calcium 9.1 mg/dL (8.5-10.1); Chloride 105 mmol/L (98-107); Estimated GFR 94.03 (mL/min/1.73m2); Glucose 119 mg/dL (74-106); Sodium 139 mmol/L (136-145); Total Protein 7.3 g/dL (6.4-8.2); Troponin I < 50 ng/L (<or=60)
--- NOTE | 2022-08-07 22:23 | DI.VRAD_ITS ---
PROCEDURE INFORMATION: Exam: XR Chest Exam date and time: 08/07/2022 21:44 Age: 72 years old Clinical indication: Other: Chest pain TECHNIQUE: Imaging protocol: Radiologic exam of the chest. Views: 1 view. COMPARISON: CT ABDOMEN PELVIS WO 08/07/2021 15:49 FINDINGS: Lungs: No consolidation. Pleural spaces: No pleural effusion. No pneumothorax. Heart/Mediastinum: No cardiomegaly. Vasculature: Tortuous aorta. Bones/joints: No acute fracture. IMPRESSION: Negative portable chest. Dictated and Authenticated by: Hoda Pratt MD. Ordering:CAROLINA Liz MD
== END 2022-08-07 22:38 | disposition home or self-care (01) ==
PROVIDERS: Emergency Provider Emergency Medicine; PCP Family Medicine
DX: R07.9 Chest pain, unspecified (principal); I25.10 Atherosclerotic heart disease of native coronary artery without angina pectoris; Z95.5 Presence of coronary angioplasty implant and graft; I10 Essential (primary) hypertension
CPT/HCPCS: 36415; 80053; 93005; 99284; 71045; 83735; 84484; 85025; 93010

== ENCOUNTER → 2022-08-22 01:21 | Outpatient (CLI) | payer MEDICARE, SELFPAY ==
--- NOTE | 2022-08-22 06:45 | DI.NM_ITS ---
APPROVED REPORT Exam: Exercise Treadmill Patient Location: Out-Patient Room/Bed: Stress Nurse: Brie Pearson RN Ordering Provider:JACKSON LAWRENCE, Contact Number: [phone] BMI: 31.58 Baseline Rhythm: Sinus Rhythm, RBBB, PVC's Indications: HISTORY OF CORONARY ARTERY DISEASE, RECURRENT CHEST DISCOMFORT, ANGINA Medical History Medical History: CAD, HLD, long COVID, HTN, Obesity, H/O Tobacco use Cardiac Medications: Metoprolol tartrate, Lisinopril, Atorvastatin Allergies: No known drug allergies Cardiac Risk Factors: Hyperlipidemia, FHX of CAD, CVD, Smoking (former) Previous Cardiac Procedures: PCI w/ stent to LAD (2005) Pretest Chest Pain Characteristics: No chest pain Exercise History: Physically active Physical Disabilities: None Lung Sounds: Clear to auscultation Heart Sounds: Regular Stress Test Details Test: Exercise stress testing was performed using aBruce protocol. Nuclear Acquisition: Rest Tc-99m/Stress Tc-99m 1 day Rest Isotope: Tc-99m Sestamibi. Dose: 9.0 Date: 08/22/2022 Injection Time: 1000 Stress Isotope: Tc-99m Sestamibi. Dose: 30.0 Date: 08/22/2022 Injection Time: 1120 HR Resting HR Supine: 97 bpm Max Heart Rate (APMHR): 148.944761 bpm Resting HR Standin bpm Target HR (85% APMHR): 125.315685 bpm Max HR Achieved: 132 bpm % of APMHR: 89.19 Recovery HR: 79 bpm HR response to stress: Normal HR response to stress Comment: Metoprolol tartrate held for 48 hrs prior to test. BP Resting BP Supine: 160/100 mmHg Resting BP Standin/100 mmHg Max BP: 194/100 mmHg Recovery BP: 152/100 mmHg BP response to stress: Normal blood pressure response to stress. Comment: Hypertensive at baseline ECG Resting ECG: Sinus Rhythm, RBBB Ectopy: PVCs Stress ECG: Sinus Tachycardia, RBBB ST Change: No significant ST segment changes noted Arrhythmia: None Recovery ECG: Sinus Rhythm, RBBB Recovery ST Change: No significant ST segment changes noted Recovery Arrhythmia: PACs, PVCs Clinical Reason for Termination: Fatigue Stress Symptoms: Dyspnea, General Fatigue Exercise duration: 4 min11 sec Exercise capacity: 4.75 METs Warner Treadmill Score: 3 Rate Pressure Product: [id number] Stress ECG Conclusion 1. The resting EKG showed right bundle branch block, left anterior fascicular block 2. Patient exercised on Shivam protocol for 4 minutes and 11 seconds, a workload of 4.75 METS limited by fatigue 3. Normal heart rate and blood pressure response to exercise. Patient achieved 89% of predicted hear t rate for age 4. There was no electrocardiographic evidence of myocardial ischemia 5. There were no significant dysrhythmias 6. See MPI report Warner Treadmill Score is 3 which is Moderate risk. Stress Test Summary STAGE Time (mins) Speed (mph) Grade (%) HR BP SpO2 SYMPTOMS METS Supine 97 160/100 Standing 91 160/100 96 1 3 1.7 10 126 190/100 93 4.5 1 min recovery 107 194/100 3 min recovery 82 162/100 96 6 min recovery 79 152/100 MPI Conclusion Normal myocardial perfusion. There is no evidence of ischemia or prior infarction EF is 69%. Wall motion is normal Radiologist Interpretation Radiologist agrees with Bottle Dealer's Interpretation. Radiologist Interpretation by: Morgan Barrera MD Interpretation Date/Time: 08/22/2022 16:04:32
== END ==
PROVIDERS: PCP Family Medicine; Visit Provider Family Medicine
DX: I20.9 Angina pectoris, unspecified (principal)
CPT/HCPCS: 78452; 93016; 93018; 93017

== ENCOUNTER 2022-10-08 13:57 | Outpatient (CLI) | payer MEDICARE, SELFPAY ==
--- NOTE | 2022-10-08 13:45 | RT.EKG_ITS ---
APPROVED REPORT Exam: Resting ECG Reason for Exam: evaluation of cardiac status Patient Location: O HR:85 bpm ECG Measurements Heart Rate 85 AXIS DE 150 P 14 QRSd 132 QRS -72 QT 387 T 15 QTc 461 Conclusion Sinus rhythm...normal P axis, V-rate 50- 99 RBBB and LAFB...QRSd >120mS, axis(-40,240)
== END 2022-10-08 13:58 | disposition home or self-care (01) ==
LOC: DI.CARD 13:58
PROVIDERS: PCP Family Medicine; Visit Provider Internal Medicine Cardiovascular Disease
DX: I10 Essential (primary) hypertension (principal); I20.9 Angina pectoris, unspecified; I25.10 Atherosclerotic heart disease of native coronary artery without angina pectoris; Z95.5 Presence of coronary angioplasty implant and graft
CPT/HCPCS: 93010

== ENCOUNTER → 2022-10-08 13:57 | Outpatient (BNVA) | payer MEDICARE, SELFPAY | PROVIDERS: PCP Family Medicine; Referring Provider Family Medicine; Visit Provider Internal Medicine Cardiovascular Disease | DX: I25.10 Atherosclerotic heart disease of native coronary artery without angina pectoris (principal); I10 Essential (primary) hypertension; E78.5 Hyperlipidemia, unspecified; Z95.5 Presence of coronary angioplasty implant and graft | CPT/HCPCS: 93005; 99203; 99214 ==

== ENCOUNTER 2023-07-01 02:48 | Outpatient (CLI) | payer MEDICARE, SELFPAY ==
[2023-07-01 10:15] LABS: Anion Gap 6.3 mmol/L (3-11); BUN 19 mg/dL (7-18); CO2 28.7 mmol/L (21.0-32.0); CREATININE 0.8 mg/dL (0.70-1.30); Calcium 9.6 mg/dL (8.5-10.1); Calculated LDL 77 mg/dL (<100); Chloride 100 mmol/L (98-107); Cholesterol 154 mg/dL (<200); Estimated GFR 93.45 (mL/min/1.73m2); Glucose 107 mg/dL (74-106); HDL Cholesterol 56 mg/dL (40-60); Potassium 4.4 mmol/L (3.5-5.1); Sodium 135 mmol/L (136-145); Triglyceride 107 mg/dL (<150)
== END 2023-07-01 02:49 | disposition home or self-care (01) ==
LOC: LBO 02:49
PROVIDERS: PCP Family Medicine; Referring Provider Family Medicine; Visit Provider Family Medicine
DX: I10 Essential (primary) hypertension (principal); E78.5 Hyperlipidemia, unspecified
CPT/HCPCS: 36415; 80048; 80061

== ENCOUNTER → 2023-07-28 13:18 | Outpatient (CLI) | payer MEDICARE, SELFPAY ==
--- NOTE | 2023-07-28 09:15 | DI.RAD_ITS ---
Exam(s) XR KNEE LT 3V AP,LAT,BRITTANY EXAM: XR KNEE LT 3V AP,LAT,BRITTANY CLINICAL HISTORY: pain for 1 mos, unstable M25.562 PAIN LEFT KNEE. TECHNIQUE: 2D digital imaging was performed. COMPARISON: No exams were available for comparison FINDINGS: 3 views no evidence of acute fracture. Minimal amount of increased joint fluid. Is moderate-advanced narrowing of the medial compartment. Minimal narrowing of the lateral compartme nt. No chondrocalcinosis.. Bone density normal. No osseous lesions IMPRESSION: There is degenerative osteoarthritic narrowing of the medial compartment of the left knee DATA REPOSITORY: RADIATION DOSE DELIVERED:
== END ==
PROVIDERS: PCP Family Medicine; Visit Provider Nurse Practitioner
DX: M17.12 Unilateral primary osteoarthritis, left knee (principal)
CPT/HCPCS: 73562

== ENCOUNTER → 2023-08-21 09:27 | Outpatient (BNVA) | payer MEDICARE, SELFPAY | PROVIDERS: PCP Family Medicine; Referring Provider Family Medicine | DX: M17.12 Unilateral primary osteoarthritis, left knee (principal) | CPT/HCPCS: 99213 ==

== ENCOUNTER → 2023-10-09 12:43 | Outpatient (BNVA) | payer MEDICARE, SELFPAY | PROVIDERS: PCP Family Medicine; Referring Provider Family Medicine; Visit Provider Internal Medicine Interventional Cardiology | DX: I25.10 Atherosclerotic heart disease of native coronary artery without angina pectoris (principal); I10 Essential (primary) hypertension; E03.9 Hypothyroidism, unspecified; R53.83 Other fatigue; E78.5 Hyperlipidemia, unspecified | CPT/HCPCS: 99213 ==

== ENCOUNTER 2023-10-21 04:46 | Outpatient (CLI) | payer MEDICARE, SELFPAY ==
[2023-10-21 12:08] LABS: TSH 1.76 uIU/mL (0.36-3.74)
== END 2023-10-21 04:47 | disposition home or self-care (01) ==
LOC: LBO 04:46
PROVIDERS: PCP Family Medicine; Visit Provider Internal Medicine Interventional Cardiology
DX: E03.9 Hypothyroidism, unspecified (principal)
CPT/HCPCS: 36415; 81003; 99214; 84443

== ENCOUNTER → 2023-11-18 01:32 | Outpatient (CLI) | payer MEDICARE, SELFPAY ==
--- NOTE | 2023-11-18 06:30 | DI.US_ITS ---
Exam(s) US RENAL EXAM: US RENAL CLINICAL HISTORY: monitor known renal KIDNEY STONES,Z87.442. TECHNIQUE: Worrell scale, color and spectral Doppler were used. COMPARISON: CT RENAL COLIC WO CONTRAST from 08/05/2011 US US RENAL from 11/05/[address] ABDOMEN PELVIS WO from 08/07/2021 FINDINGS: Renal size in cm: Right: 11.3. Left: 12.3. Echogenicity: Normal. Hydronephrosis: No. Cyst or mass: There is again seen a cyst in the left kidney in the midpole with a wall calcification measuring 1.5 cm. This can be seen on the CT scan from 08/07/2021. There also parapelvic cysts again noted. Nephrolithiasis: There is an echogenic focus seen in the right kidney measuring 6 mm in the mid pole consistent with a nonobstructing stone. Other findings: None. Bladder:Normal. Ureteral jets: Right: Visualized and unremarkable. Left: Visualized and unremarkable. Prevoid vol:81 cc Postvoid vol:15 cc Prostate: 10 cc Renal color flow: Symmetric and within normal limits. IMPRESSION: 1. Right nephrolithiasis without evidence of obstructive uropathy. 2. Stable left renal cyst with wall calcification. No follow-up is recommended. 3. Bilateral parapelvic cysts. DATA REPOSITORY:
== END ==
PROVIDERS: PCP Family Medicine; Visit Provider Urology
DX: Z87.442 Personal history of urinary calculi (principal); N28.1 Cyst of kidney, acquired
CPT/HCPCS: 76770

== ENCOUNTER → 2023-11-21 07:49 | Outpatient (BNVA) | payer MEDICARE, SELFPAY | PROVIDERS: PCP Family Medicine; Referring Provider Family Medicine; Visit Provider Urology | DX: N20.0 Calculus of kidney (principal); Z87.442 Personal history of urinary calculi | CPT/HCPCS: 99213 ==

== ENCOUNTER → 2023-11-27 13:21 | Outpatient (BNVA) | payer MEDICARE, SELFPAY | PROVIDERS: PCP Family Medicine; Referring Provider Family Medicine; Visit Provider Internal Medicine Cardiovascular Disease | DX: I25.10 Atherosclerotic heart disease of native coronary artery without angina pectoris (principal); I10 Essential (primary) hypertension | CPT/HCPCS: 99213 ==

== ENCOUNTER 2024-04-20 14:42 | Outpatient (CLI) | payer MEDICARE, SELFPAY ==
--- NOTE | 2024-04-20 14:30 | RT.EKG_ITS ---
APPROVED REPORT Exam: Resting ECG Reason for Exam: Dyspnea, palpitations Patient Location: O HR:77 bpm ECG Measurements Heart Rate 77 AXIS MT 158 P 39 QRSd 136 QRS -74 QT 399 T 4 QTc 452 Conclusion Sinus rhythm...normal P axis, V-rate 50- 99 Atrial premature complexes...SV complexes w/ short R-R intvls RBBB and LAFB...QRSd >120mS, axis(-40,240)
== END 2024-04-20 14:43 | disposition home or self-care (01) ==
LOC: DI.KIM 14:43
PROVIDERS: PCP Family Medicine; Visit Provider Family Medicine
DX: R00.2 Palpitations (principal)
CPT/HCPCS: 93010

== ENCOUNTER 2024-05-07 10:19 | Outpatient (RCR) | payer MEDICARE, SELFPAY ==
--- NOTE | 2024-05-12 09:45 | HOLTER_ITS ---
APPROVED REPORT Conclusion This is a 48-hour Holter monitor Predominant rhythm was sinus with an average heart rate of 63. Minimum was 49, maximum 85 There were very rare isolated ventricular ectopic beats There was 1 run of nonsustained ventricular tachycardia which occurred at 5:30 AM There were occasional atrial premature beats There were several self-limited atrial runs. The longest of these was 12 beats in duration, occurred at 12:30 AM There was no atrial relation no high-grade AV block, no pauses greater than 3 seconds No patient's symptoms were reported
== END 2024-06-05 23:59 | disposition home or self-care (01) ==
LOC: CARDOPNVT 10:19
PROVIDERS: PCP Family Medicine; Visit Provider Internal Medicine Cardiovascular Disease
DX: R00.2 Palpitations (principal); I49.1 Atrial premature depolarization
CPT/HCPCS: 93227; 93225; 93226

== ENCOUNTER 2024-05-28 00:33 | Outpatient (CLI) | payer MEDICARE, SELFPAY ==
[2024-05-28 08:41] LABS: HCT 48.1 % (40.0-50.0); MCH 32.1 pg (27.0-33.0); MCHC 33.3 % (32.0-36.0); MCV 97 fL (80-95); MPV 9.7 fL (8.0-11.0); Platelet Count 202 10^3/uL (130-400); RBC 4.98 10^6/uL (4.36-5.78); RDW 12.6 % (11.8-14.1); RDW-SD 45.1 fL; WBC 5.66 10^3/uL (4.4-10.8)
[2024-05-28 09:39] LABS: Vitamin B12 454 pg/mL (193-986)
[2024-05-28 09:48] LABS: Iron 112 ug/dL (65-175); Total Iron Binding Capacity 334 ug/dL (250-450); Transferrin Sat 34 % (20-55)
[2024-05-28 19:21] LABS: PSA, Diagnostic 0.6 ng/mL (<=6.5)
== END 2024-05-28 00:34 | disposition home or self-care (01) ==
LOC: LBO 00:34
PROVIDERS: PCP Family Medicine; Visit Provider Urology
DX: N40.1 Benign prostatic hyperplasia with lower urinary tract symptoms (principal); R71.8 Other abnormality of red blood cells
CPT/HCPCS: 36415; 85027; 82607; 83540; 83550; 84153

== ENCOUNTER → 2024-05-31 13:01 | Outpatient (BNVA) | payer MEDICARE, SELFPAY | PROVIDERS: PCP Family Medicine; Visit Provider Internal Medicine Cardiovascular Disease | DX: I25.10 Atherosclerotic heart disease of native coronary artery without angina pectoris (principal); I10 Essential (primary) hypertension | CPT/HCPCS: 93226; 99213 ==

== ENCOUNTER → 2024-06-04 08:18 | Outpatient (BNVA) | payer MEDICARE, SELFPAY | PROVIDERS: PCP Family Medicine; Referring Provider Family Medicine; Visit Provider Urology | DX: N40.1 Benign prostatic hyperplasia with lower urinary tract symptoms (principal); N20.1 Calculus of ureter; N13.8 Other obstructive and reflux uropathy | CPT/HCPCS: 99213 ==

== ENCOUNTER 2025-01-20 08:00 | Outpatient (CLI) | payer MEDICARE, SELFPAY ==
[2025-01-20 09:12] LABS: Anion Gap 7.3 mmol/L (3-11); BUN 23 mg/dL (7-18); CO2 28.7 mmol/L (21.0-32.0); CREATININE 0.8 mg/dL (0.70-1.30); Calculated LDL 70 mg/dL (<100); Chloride 106 mmol/L (98-107); Cholesterol 151 mg/dL (<200); Estimated GFR 92.29 (mL/min/1.73m2); Glucose 95 mg/dL (74-106); HDL Cholesterol 60 mg/dL (>or=40); Potassium 4.4 mmol/L (3.5-5.1); Sodium 142 mmol/L (136-145); Triglyceride 107 mg/dL (<150)
== END 2025-01-20 08:01 | disposition home or self-care (01) ==
PROVIDERS: PCP Family Medicine; Visit Provider Family Medicine
DX: I25.10 Atherosclerotic heart disease of native coronary artery without angina pectoris (principal); I10 Essential (primary) hypertension
CPT/HCPCS: 36415; 80048; 80061

== ENCOUNTER 2025-06-02 07:52 | Outpatient (CLI) | payer MEDICARE, SELFPAY ==
--- NOTE | 2025-06-02 07:45 | RT.EKG_ITS ---
APPROVED REPORT Exam: Resting ECG Reason for Exam: CAD Patient Location: O HR:92 bpm ECG Measurements Heart Rate 92 AXIS ND 152 P 35 QRSd 129 QRS -71 QT 364 T -14 QTc 451 Conclusion Sinus rhythm...normal P axis, V-rate 50- 99 Probable left atrial enlargement...P >50mS, <-0.10mV V1 RBBB and LAFB...QRSd >120mS, axis(-40,240) Baseline wander in lead(s) I,III,aVL
== END 2025-06-02 07:53 | disposition home or self-care (01) ==
LOC: DI.CARD 07:53
PROVIDERS: PCP Family Medicine; Visit Provider Internal Medicine Cardiovascular Disease
DX: I25.10 Atherosclerotic heart disease of native coronary artery without angina pectoris (principal); I45.10 Unspecified right bundle-branch block; I44.4 Left anterior fascicular block; I51.7 Cardiomegaly
CPT/HCPCS: 93010

== ENCOUNTER → 2025-06-02 12:28 | Outpatient (BNVA) | payer MEDICARE, SELFPAY | PROVIDERS: PCP Family Medicine; Referring Provider Family Medicine; Visit Provider Internal Medicine Cardiovascular Disease | DX: I25.10 Atherosclerotic heart disease of native coronary artery without angina pectoris (principal); I10 Essential (primary) hypertension | CPT/HCPCS: 99213; 93005 ==

== ENCOUNTER → 2025-06-02 13:17 | Outpatient (BNVA) | payer MEDICARE, SELFPAY | PROVIDERS: PCP Family Medicine; Referring Provider Family Medicine; Visit Provider Nurse Practitioner Gerontology | DX: N40.1 Benign prostatic hyperplasia with lower urinary tract symptoms (principal); N13.8 Other obstructive and reflux uropathy | CPT/HCPCS: 99213; 93005 ==